=== PATIENT | male | born 1945 | race Caucasian/White ===

== ENCOUNTER → 2016-11-14 | Outpatient (CLI) | payer OTHER ==
[~2016-11-14] MED LIST: ALL300 PO; ASPI-435 PO; INDA1TAB3 PO; LEVO-459 PO; LEVO50TA PO; LPT40 PO; METF1TAB85 PO; MIRA1TAB3 PO
[2016-11-14 12:41] LABS: ESTIMATED AVERAGE GLUCOSE 169 mg/dl; HA1C FLAG Normal (Normal)
== END | disposition home or self-care (01) ==
LOC: C.LABPVFM 08:03
PROVIDERS: ATTEND Physician Assistant
DX: E11.9 Type 2 diabetes mellitus without complications (principal); E78.00 Pure hypercholesterolemia, unspecified; I10 Essential (primary) hypertension; E03.9 Hypothyroidism, unspecified; R35.0 Frequency of micturition; R39.15 Urgency of urination

== ENCOUNTER → 2016-11-14 | Outpatient (CLI) | payer OTHER ==
[2016-11-14 12:23] LABS: BASO % 0.7 %; BASO ABS # 0.05 K/uL (0-0.2); COMPLETE YES; HEMATOCRIT 44.7 % (42-52); IG% 0.3 %; LYMPH % 32.3 %; LYMPH ABS # 2.45 K/uL (1.2-3.4); MEAN CELL VOLUME 93.3 fL (80-100); MEAN CORPUSCULAR HEMOGLOBIN 31.9 pg (25-34); MEAN CORPUSCULAR HGB CONC 34.2 g/dl (32-36); MEAN PLATELET VOLUME 9.6 fL (7.4-10.4); MONO % 6.6 %; NEUT % 55.1 %; PLATELET COUNT 289 K/uL (130-400); RED BLOOD COUNT 4.79 M/uL (4.7-6.1); WHITE BLOOD COUNT 7.58 K/uL (4.8-10.8)
[2016-11-14 12:25] LABS: URINE APPEARANCE CLEAR (CLEAR); URINE BILIRUBIN NEG (NEG); URINE COLOR YELLOW; URINE NITRITE NEG (NEG); URINE SPECIFIC GRAVITY 1.023 (1.000-1.030); UROBILINOGEN NEG (NEG)
[2016-11-14 12:29] LABS: MANUAL MICROSCOPIC REQUIRED? NO; REVIEW REQ? NO
[2016-11-14 12:41] LABS: ALT/SGPT 29 U/L (12-78); AST/SGOT 21 U/L (15-37); BLOOD UREA NITROGEN 17 mg/dl (7-18); BUN/CREATININE RATIO 17.7 (10-20); CALCIUM 9.3 mg/dl (8.5-10.1); CARBON DIOXIDE 31 mmol/L (21-32); CHLORIDE 105 mmol/L (98-107); CHOLESTEROL 140 mg/dl (0-200); CREATININE 0.97 mg/dl (0.60-1.40); GLUCOSE 141 mg/dl (70-99); POTASSIUM 3.8 mmol/L (3.5-5.1); SODIUM 140 mmol/L (136-145)
[2016-11-14 12:51] LABS: CHOLESTEROL/HDL RATIO 3.4; HDL CHOLESTEROL 41 mg/dl; LDL CHOLESTEROL CALCULATED 76 mg/dl; TRIGLYCERIDES 117 mg/dl (0-150); VERY LOW DENSITY LIPOPROT CALC 23 mg/dl
== END | disposition home or self-care (01) ==
LOC: C.LABPVFM 07:59
PROVIDERS: ATTEND Internal Medicine
DX: I10 Essential (primary) hypertension (principal); E78.00 Pure hypercholesterolemia, unspecified; E11.9 Type 2 diabetes mellitus without complications

== ENCOUNTER → 2017-03-01 | Outpatient (CLI) | payer OTHER ==
[2017-03-01 17:09] LABS: ESTIMATED AVERAGE GLUCOSE 174 mg/dl; HA1C FLAG Normal (Normal)
== END | disposition home or self-care (01) ==
LOC: C.LAB1850 13:49
PROVIDERS: ATTEND Internal Medicine
DX: E11.9 Type 2 diabetes mellitus without complications (principal)

== ENCOUNTER → 2017-06-02 | Outpatient (CLI) | payer OTHER ==
[2017-06-02 12:38] LABS: BASO % 1.2 %; BASO ABS # 0.09 K/uL (0-0.2); EOS % 6.2 %; EOS ABS # 0.46 K/uL (0-0.5); HEMATOCRIT 45.4 % (42-52); HEMOGLOBIN 15.5 g/dL (14.0-18.0); IG# 0.01 K/uL (0.00-0.02); LYMPH % 30.7 %; LYMPH ABS # 2.29 K/uL (1.2-3.4); MEAN CELL VOLUME 95.2 fL (80-100); MEAN CORPUSCULAR HEMOGLOBIN 32.5 pg (25-34); MEAN CORPUSCULAR HGB CONC 34.1 g/dl (32-36); MEAN PLATELET VOLUME 9.8 fL (7.4-10.4); MONO % 6.4 %; MONO ABS # 0.48 K/uL (0.11-0.59); NEUT % 55.4 %; NEUT ABS # 4.12 K/uL (1.4-6.5); PLATELET COUNT 254 K/uL (130-400); RED CELL DISTRIBUTION WIDTH CV 13.8 % (11.5-14.5); RED CELL DISTRIBUTION WIDTH SD 47.7 fL (36.4-46.3); WHITE BLOOD COUNT 7.45 K/uL (4.8-10.8)
[2017-06-02 13:23] LABS: HEMOGLOBIN A1C 8.1 % (4.5-5.6)
[2017-06-02 13:41] LABS: ALT/SGPT 29 U/L (12-78); AST/SGOT 18 U/L (15-37); BLOOD UREA NITROGEN 21 mg/dl (7-18); CALCIUM 9.1 mg/dl (8.5-10.1); CARBON DIOXIDE 28 mmol/L (21-32); GLUCOSE 193 mg/dl (70-99); SODIUM 138 mmol/L (136-145)
[2017-06-02 13:52] LABS: CHOLESTEROL 153 mg/dl (0-200); LDL CHOLESTEROL CALCULATED 73 mg/dl
== END | disposition home or self-care (01) ==
LOC: C.LABPVFM 07:27
PROVIDERS: ATTEND Internal Medicine
DX: E11.9 Type 2 diabetes mellitus without complications (principal)

== ENCOUNTER 2019-12-20 18:53 | Observation (INO) ==
[2019-12-20] MEDS ORDERED: NITROGLYCERIN SL 0.4 MG/TAB TAB SL PRN (19:03)
[2019-12-20] MEDS ORDERED: ASPIRIN CHEW 324 MG PO STA (19:03)
--- NOTE | 2019-12-20 19:14 | Emergency Department Note ---
History of Present Illness General Chief Complaint: Chest Pain Stated Complaint: CHEST PAIN, NAUSEA Time Seen by Provider: 12/20/19 19:03 History of Present Illness Provider Complaint: chest pain Onset (ago): day(s) 1 Duration: constant and progressively worsening Onset: during rest Pain Location: substernal Pain Radiation: none Severity: moderate Maximum Pain Intensity: 5 Current Pain Intensity: 5 Quality: + dull and + other (pressure) Relieved By: + nothing Exacerbated By: + nothing Context: no recent surgery, no recent immobilization, no trauma/injury and no history of DVT/PE Associated symptoms: no nausea, no dyspnea, no syncope, no palpitations and no fever Home Medications Home Medications Medication Instructions Recorded Confirmed Type atorvastatin 40 mg tablet 40 mg PO QPM #90 tab 01/26/19 04/11/19 Rx levothyroxine 88 mcg tablet 88 mcg PO DAILY #90 tab 01/26/19 04/11/19 Rx glipizide 5 mg tablet, extended 5 mg PO DAILY #90 tab 02/02/19 04/11/19 Rx release 24 hr allopurinol 300 mg tablet 300 mg PO DAILY #90 tab 03/07/19 04/11/19 Rx metformin 500 mg tablet,extended 1,000 mg PO BID #360 tab 03/15/19 04/11/19 Rx release 24hr indapamide 1.25 mg tablet 1.25 mg PO QAM #90 tab 03/24/19 04/11/19 Rx tolterodine 4 mg capsule,extended 4 mg PO DAILY #90 cap 04/19/19 Rx release 24 hr mirabegron 50 mg tablet,extended 50 mg PO DAILY #90 tab 08/07/19 Rx release 24 hr Allergies Allergy/AdvReac Type Severity Reaction Status Date / Time bacitracin Allergy Unknown unknown Unverified 04/11/19 13:28 neomycin Allergy Unknown unknown Unverified 04/11/19 13:28 polymyxin B Allergy Unknown unknown Unverified 04/11/19 13:28 Past Med/Surg History Medical History Adenomatous polyp of colon Diabetes mellitus Enlarged prostate without lower urinary tract symptoms (luts) Gout Hypercholesterolemia Hypertension Hypothyroidism Social History Smoking Status: Never smoker Feels Safe at Home: Yes Review of Systems A total of 10 systems reviewed and were otherwise negative Physical Exam Vital Signs Vital Signs - 24 hr 12/20/19 18:55 12/20/19 19:05 12/20/19 19:21 Temperature 36.8 C Temperature Source Oral Pulse Rate 115 H 109 H 107 H Pulse Rate from SpO2 Sensor 106 H Respiratory Rate 16 26 H 20 Respiratory Effort / Characteristics Non-Labored Spontaneous Respiratory Depth Normal Blood Pressure 161/90 H 175/109 H 140/99 Blood Pressure Mean 113 138 105 Blood Pressure Position Sitting Pulse Oximetry 97 98 98 Oxygen Delivery Method Room Air Sepsis Recent Fever Within 48 Hours No Sepsis New/Unexplained Change in Mental Status N/A Sepsis Action Taken by Nursing No Action Required 12/20/19 19:22 Temperature Temperature Source Pulse Rate 117 H Pulse Rate from SpO2 Sensor Respiratory Rate 24 Respiratory Effort / Characteristics Respiratory Depth Blood Pressure Blood Pressure Mean Blood Pressure Position Pulse Oximetry 98 Oxygen Delivery Method Room Air Sepsis Recent Fever Within 48 Hours Sepsis New/Unexplained Change in Mental Status Sepsis Action Taken by Nursing Physical Exam GENERAL: He is oriented to person, place, and time. He appears well-developed and well-nourished. He does not appear distressed. HENT: Exam performed. - Head: Normocephalic and atraumatic. - Right Ear: External ear normal. No mastoid tenderness. - Left Ear: External ear normal. No mastoid tenderness. - Mouth/Throat: The oropharynx is clear and moist. No trismus in the jaw. No dental abscesses or uvula swelling. No oropharyngeal exudate or tonsillar abscesses. EYES: Conjunctivae and EOM are normal. Pupils are equal, round, and reactive to light. Right eye exhibits no discharge. Left eye exhibits no discharge. No scleral icterus. NECK: Normal range of motion. Neck supple. No JVD present. No spinous process tenderness present. No carotid bruit present. No rigidity. No tracheal deviation and normal range of motion present. No Brudzinski's sign and no Kernig's sign noted. CV: Tachycardic rate, regular rhythm, normal heart sounds and intact distal pulses. There is no peripheral edema. Palpable radial pulses bue. PULM/CHEST: Effort normal and breath sounds normal. No respiratory distress. No stridor. He has no wheezes. He has no rales. - Chest Wall: He exhibits no tenderness. ABD: The abdomen is soft. Bowel sounds are normal. He has no distension. No mass is present. There is no tenderness. There is no rebound, no guarding, no Thoams's sign and no tenderness at McBurney's point. Rovsig negative. MUSC/SKEL: Normal range of motion. There is no peripheral edema, tenderness or deformity. LYMPH: No cervical adenopathy. NEURO: He is alert and oriented to person, place, and time. He has normal strength. No cranial nerve deficit or sensory deficit. Coordination and gait normal. GCS eye subscore is 4. GCS verbal subscore is 5. GCS motor subscore is 6. Cerebellar tests wnl. SKIN: Skin is warm and dry. He is not diaphoretic. PSYCH: He has a normal mood and affect. Behavior is normal. Judgment and thought content normal. Course Course 0: The patient was evaluated in room A12. A complete history and physical exam was performed. Heart alert called. asa 324 mg and SL nitro ordered. patient placed on cardiac specialist pads applied. Cardiac monitoring: An order was placed for continuous cardiac monitoring. The monitor shows a rate of 110 with sinus tachycardia rhythm. ST elevation on the rhythm. 1915: Vital signs stable. Status post 1 sublingual nitro chest pain improved to 3/10. 1921: Vital signs stable patient chest pain free at this time. 1940: Dr. Krueger at bedside will take the patient up to the [facility] for STEMI. Administered Medications Nitroglycerin (Nitroglycerin Sl 0.4 Mg/Tab Tab) 0.4 mg SL Q5M PRN PRN Reason: Chest Pain Last Admin: 12/20/19 19:14 Dose: 0.4 mg Documented by: [id number] Discontinued Medications Aspirin (Aspirin Chew 324 Mg) 324 mg PO NOW STA Stop: 12/20/19 19:04 Last Admin: 12/20/19 19:14 Dose: 324 mg Documented by: [id number] Heparin Sodium (Porcine) (Heparin Sod (Porcine) 1000 Unit/Ml 10 Ml Vial) Confirm Administered Dose 10,000 units .ROUTE .STK-MED ONE Stop: 12/20/19 19:26 Last Admin: 12/20/19 19:38 Dose: 10,000 units Documented by: [id number] Cosigned by: [id number] Ticagrelor (Ticagrelor 90 Mg Tab) Confirm Administered Dose 180 mg PO .STK-MED ONE Stop: 12/20/19 19:26 Last Admin: 12/20/19 19:38 Dose: 180 mg Documented by: [id number] Medical Decision Making Laboratory Data Result diagrams: 12/20/19 19:05 12/20/19 19:05 Labs: Lab Results 12/20/19 12/20/19 12/20/19 Range/Units 19:05 19:05 19:05 WBC 11.41 H (4.8-10.8) K/uL RBC 5.25 (4.7-6.1) M/uL Hgb 17.1 (14.0-18.0) g/dL Hct 49.0 (42-52) % MCV 93.3 (80-100) fL MCH 32.6 (25-34) pg MCHC 34.9 (32-36) g/dL RDW Std Deviation 47.0 H (36.4-46.3) fL RDW Coeff of Mega 14.0 (11.5-14.5) % Plt Count 310 (130-400) K/uL MPV 9.3 (7.4-10.4) fL Immature Gran % (Auto) 0.4 % Neut % (Auto) 77.6 % Lymph % (Auto) 15.2 % [place] % (Auto) 6.1 % Eos % (Auto) 0.4 % Baso % (Auto) 0.3 % Neut # (Auto) 8.86 H (1.4-6.5) K/uL Lymph # (Auto) 1.74 (1.2-3.4) K/uL [place] # (Auto) 0.70 H (0.11-0.59) K/uL Eos # (Auto) 0.04 (0-0.5) K/uL Baso # (Auto) 0.03 (0-0.2) K/uL Immature Gran # (Auto) 0.04 H (0.00-0.02) K/uL PT 11.1 (9.0-12.0) Seconds INR 1.1 (0.9-1.1) APTT 25.5 (21.0-31.0) Seconds PTT Ratio 0.9 Sodium 135 L (136-145) mmol/L Potassium 3.2 L (3.5-5.1) mmol/L Chloride 100 (98-107) mmol/L Carbon Dioxide 27 (21-32) mmol/L Anion Gap 8.0 (3-11) BUN 14 (7-18) mg/dl Creatinine 1.11 (0.6-1.4) mg/dl Est Cr Clr Drug Dosing 68.7 ml/min Est GFR ( Amer) 75.4 Est GFR (Non-Af Amer) 65.1 BUN/Creatinine Ratio 12.9 (10-20) Glucose 172 H (70-99) mg/dl Calcium 9.4 (8.5-10.1) mg/dl Magnesium 1.4 L (1.8-2.4) mg/dl AST 97 H (15-37) U/L ALT 36 (12-78) U/L Albumin 3.7 (3.4-5.0) gm/dl Lipase 95 (73-393) U/L Imaging Data Chest x-ray: Radiologist's impression: XR chest 1V portable HISTORY: 74 years-old Male Chest pain acute atypical chest pain COMPARISON: CTA of the chest 02/08/2014 TECHNIQUE: Portable AP view of the chest FINDINGS: Cardiac silhouette is enlarged, unchanged. Large hiatal hernia. Linear subsegmental left basilar atelectasis/scarring. No pneumothorax, pleural effusion or overt pulmonary edema. Bones of the chest appear grossly intact. IMPRESSION: 1. Cardiomegaly without acute process. 2. Large hiatal hernia. ACT 112: Negative or not required by law. The above report was generated using voice recognition software. It may contain grammatical, syntax or spelling errors. Electronically signed by: Jacky Sunshine M.D. 12/20/2019 7:31 PM Dictated: 12/20/191929 Transcribed: 12/20/191929 ECG Data Indication: chest pain Rate (beats per minute): 103 Rhythm: normal sinus Findings: + ST depression (V3V4) and + ST elevation (V1V2) Additional Comments: MA QRS QTC interval within normal limits MDM Narrative 1899: The patient was evaluated in room A12. A complete history and physical exam was performed. Heart alert called. asa 324 mg and SL nitro ordered. patient placed on cardiac specialist pads applied. Cardiac monitoring: An order was placed for continuous cardiac monitoring. The monitor shows a rate of 110 with sinus tachycardia rhythm. ST elevation on the rhythm. 1915: Vital signs stable. Status post 1 sublingual nitro chest pain improved to 3/10. 1921: Vital signs stable patient chest pain free at this time. 1940: Dr. Krueger at bedside will take the patient up to [facility] for STEMI. Impression & Plan ST elevation myocardial infarction (STEMI) Critical Care Time Critical Care Time: Yes Total Critical Care Time: 41 I have personally spent greater than 41 minutes of critical care time in the direct management of this patient. This includes bedside care, interpretation of diagnostic studies, and testing, discussion with consultants, patient, and family members, and other required patient management activities. This 41 minutes is in excess of all separately billable procedures. Discharge Plan Visit Data Chief Complaint: Chest Pain Stated Complaint: CHEST PAIN, NAUSEA ED Provider: Geoffrey Rocha Discharge Problem: ST elevation myocardial infarction (STEMI) Patient Disposition: Admitted As Inpatient Forms Stand Alone Forms: [facility] Prescriptions Prescriptions: No Action atorvastatin 40 mg tablet 40 mg PO QPM Qty: 90 RF: 3 levothyroxine [Levoxyl] 88 mcg tablet 88 mcg PO DAILY Qty: 90 RF: 3 glipizide 5 mg tablet extended release 24hr 5 mg PO DAILY Qty: 90 RF: 3 allopurinol 300 mg tablet 300 mg PO DAILY Qty: 90 RF: 3 metformin 500 mg tablet extended release 24hr 1,000 mg PO BID Qty: 360 RF: 3 indapamide 1.25 mg tablet 1.25 mg PO QAM Qty: 90 RF: 3 tolterodine 4 mg capsule,extended release 24hr 4 mg PO DAILY Qty: 90 RF: 4 Myrbetriq 50 mg tablet extended release 24 hr 50 mg PO DAILY Qty: 90 RF: 3 Referrals Referrals: Oscar Nichole MD [Primary Care Provider] -
[2019-12-20 19:16] LABS: Basophils # (auto) 0.03 K/uL (0-0.2); Basophils % (auto) 0.3 %; Eosinophils # (auto) 0.04 K/uL (0-0.5); Eosinophils % (auto) 0.4 %; Hemoglobin 17.1 g/dL (14.0-18.0); Immature Granulocytes # (auto) 0.04 K/uL (0.00-0.02); Immature Granulocytes % (auto) 0.4 %; Lymphocytes # (auto) 1.74 K/uL (1.2-3.4); Lymphocytes % (auto) 15.2 %; Mean Corpuscular Hemoglobin 32.6 pg (25-34); Mean Corpuscular Hgb Conc 34.9 g/dL (32-36); Mean Corpuscular Volume 93.3 fL (80-100); Mean Platelet Volume 9.3 fL (7.4-10.4); Monocytes % (auto) 6.1 %; Neutrophils # (auto) 8.86 K/uL (1.4-6.5); Neutrophils % (auto) 77.6 %; Platelet Count 310 K/uL (130-400); Red Blood Count 5.25 M/uL (4.7-6.1); White Blood Count 11.41 K/uL (4.8-10.8)
[2019-12-20] MEDS ORDERED: HEPARIN (PORCINE) 1000 UNIT/ML 10 ML (CATH LAB USE ONLY) ONE (19:22)
[2019-12-20] MEDS ORDERED: MIDAZOLAM HCL 1 MG/ML 2ML VIAL ONE (19:22)
[2019-12-20] MEDS ORDERED: NiCARDipine HCL INJ 2.5 MG/ML 10 ML AMP ONE (19:22)
[2019-12-20] MEDS ORDERED: fentaNYL citrate 100 MCG/2 ML VIAL ONE (19:22)
[2019-12-20] MEDS ORDERED: NITROGLYCERIN/D5W 100MCG/ML 20ML SYR ONE (19:23)
[2019-12-20] MEDS ORDERED: HEPARIN SOD (PORCINE) 1000 UNIT/ML 10 ML VIAL ONE (19:25)
[2019-12-20] MEDS ORDERED: TICAGRELOR 90 MG TAB PO ONE ×2 (19:25→19:45)
[2019-12-20 19:27] LABS: INR 1.1 (0.9-1.1); Partial Thromboplastin Ratio 0.9; Partial Thromboplastin Time 25.5 Seconds (21.0-31.0); Prothrombin Time 11.1 Seconds (9.0-12.0)
[2019-12-20 19:32] LABS: Albumin Level 3.7 gm/dl (3.4-5.0); BUN Creatinine Ratio 12.9 (10-20); Calcium 9.4 mg/dl (8.5-10.1); Creatinine Clr Calc Pharmacy 68.7 ml/min; Est GFR (African American) 75.4; Est GFR (Non-African American) 65.1; Magnesium 1.4 mg/dl (1.8-2.4); Potassium 3.2 mmol/L (3.5-5.1)
--- NOTE | 2019-12-20 19:33 | XRay Report ---
XR chest 1V portable HISTORY: 74 years-old Male Chest pain acute atypical chest pain COMPARISON: CTA of the chest 02/08/2014 TECHNIQUE: Portable AP view of the chest FINDINGS: Cardiac silhouette is enlarged, unchanged. Large hiatal hernia. Linear subsegmental left basilar atel ectasis/scarring. No pneumothorax, pleural effusion or overt pulmonary edema. Bones of the chest appe ar grossly intact. IMPRESSION: 1. Cardiomegaly without acute process. 2. Large hiatal hernia. ACT 112: Negative or not required by law. The above report was generated using voice recognition software. It may contain grammatical, syntax o r spelling errors. Electronically signed by: Jacky Sunshine M.D. 12/20/2019 7:31 PM
--- NOTE | 2019-12-20 19:44 | Pre Anesthesia Assessment ---
Date of Service December 20, 2019 Pre Sedation Assessment Vital Signs Temp Pulse Resp BP Pulse Ox 12/20/19 19:22 117 H 24 98 12/20/19 19:21 107 H 20 140/99 98 12/20/19 19:05 109 H 26 H 175/109 H 98 12/20/19 18:55 98.2 F 115 H 16 161/90 H 97 Cardiovascular RRR, no murmur, no edema Respiratory normal respiratory effort, lungs clear to auscultation Pre-Sedation Airway Assessment Smoking Status: Never smoker Hx Sleep Apnea: No Hx Difficult Intubation: No Short, Thick Neck: No Thyromental Distance: > or= 3.5 Finger Breadths Oral Cavity: + WNL Mallampati Class: III ASA: ASA3 Procedure Planning Contraindications for Sedation: none Current Medications Reviewed: Yes Notes The planned sedation has been discussed with the patient. Informed Consent was obtained. I have identified the patient, determined the appropriateness of sedation and have assessed the patient immediately prior to the procedure. All medicine(s) and interventions are by my order.
[2019-12-20] MEDS ORDERED: HEPARIN SOD (PORCINE) 1000 UNIT/ML 10 ML VIAL IV ONE (19:45)
[2019-12-20 19:47] LABS: Albumin Globulin Ratio 0.9 (0.9-2); Bilirubin,Total 0.6 mg/dl (0.2-1); Creatine Kinase MB 65.8 ng/ml (0.5-3.6); Globulin 4.1 gm/dl (2.5-4.0); Total Protein 7.8 gm/dl (6.4-8.2); Troponin I 12.4 ng/ml (0-0.045)
--- NOTE | 2019-12-20 19:48 | Cardiology Consultation ---
Date of Consultation December 20, 2019 Assessment & Plan (1) Acute UT: Presentation concerning for acute UT and recommend proceeding with emergent cardiac catheterization and likely primary PCI. No apparent contraindications to procedure. Discussed risks, benefits, alternatives of procedure with patient and they are willing to proceed. Given IV heparin and ticagrelor 180 mg in the ED. Further recommendations pending findings of coronary angiography. History of Present Illness History of Present Illness 74-year-old man here with acute chest pain and ECG concerning for acute UT. Patient seen emergently in the ED after heart alert activated on arrival. No prior cardiac history. Cardiac risk factors include [id number] type 2 diabetes, hypertension, dyslipidemia. Chest pain began the night prior to presentation and largely persisted since that time. Describes substernal chest pressure with associated nausea. Pain at its worst 8 out of 10. Denies similar symptoms in the past. Not terribly active at baseline but denies any exertional chest comfort the last several weeks when out walking his dog. Chest pain at time of arrival 09/09 to ED. Hemodynamically stable. EKG showed subtle anterior ST elevations. Chest pain largely resolved with 1 sublingual nitroglycerin Allergies Allergy/AdvReac Type Severity Reaction Status Date / Time bacitracin Allergy Unknown unknown Unverified 04/11/19 13:28 neomycin Allergy Unknown unknown Unverified 04/11/19 13:28 polymyxin B Allergy Unknown unknown Unverified 04/11/19 13:28 Home Medications Home Medications Medication Instructions Recorded Confirmed Type atorvastatin 40 mg tablet 40 mg PO QPM #90 tab 01/26/19 04/11/19 Rx levothyroxine 88 mcg tablet 88 mcg PO DAILY #90 tab 01/26/19 04/11/19 Rx glipizide 5 mg tablet, extended 5 mg PO DAILY #90 tab 02/02/19 04/11/19 Rx release 24 hr allopurinol 300 mg tablet 300 mg PO DAILY #90 tab 03/07/19 04/11/19 Rx metformin 500 mg tablet,extended 1,000 mg PO BID #360 tab 03/15/19 04/11/19 Rx release 24hr indapamide 1.25 mg tablet 1.25 mg PO QAM #90 tab 03/24/19 04/11/19 Rx tolterodine 4 mg capsule,extended 4 mg PO DAILY #90 cap 04/19/19 Rx release 24 hr mirabegron 50 mg tablet,extended 50 mg PO DAILY #90 tab 08/07/19 Rx release 24 hr Patient History Medical History Adenomatous polyp of colon Diabetes mellitus Enlarged prostate without lower urinary tract symptoms (luts) Gout Hypercholesterolemia Hypertension Hypothyroidism Social History Smoking Status: Never smoker Feels Safe at Home: Yes Review of Systems Review of Systems: All systems reviewed & are unremarkable except as noted in HPI & below Physical Exam Physical Exam: General: Comfortable, no acute distress HEENT: Sclerae anicteric, mucous membranes moist Lungs: Clear to auscultation bilaterally, no rhonchi or wheezes Cardiac: Regular rate and rhythm, no murmurs Abdomen: Soft, nontender, nondistended, positive bowel sounds. Extremities: Warm, well perfused, no edema. 2+ radial pulses Skin: No rashes or lesions. Neuro: Nonfocal Psych: Alert orient x3, normal affect and mood Results & Data ([facility]) Vital Signs (Past 12 Hours) Vital Signs Temp Pulse Resp BP Pulse Ox 12/20/19 19:22 117 H 24 98 12/20/19 19:21 107 H 20 140/99 98 12/20/19 19:05 109 H 26 H 175/109 H 98 12/20/19 18:55 98.2 F 115 H 16 161/90 H 97 PG Care Time/CCT Total # of Minutes Spent Total Time Spent with Patient: Total time spent is greater than 50% in coordination of care (as documented) at patient's floor/unit and/or counseling patient: Coding Level of Care Code 18872 Initial Inpt Care Lvl 3 Diagnoses Acute UT I21.9
--- NOTE | 2019-12-20 20:33 | Post Anesthesia Assessment ---
Date of Service December 20, 2019 Post Sedation Assessment Vital Signs Temp Pulse Resp BP Pulse Ox 12/20/19 19:22 117 H 24 98 12/20/19 19:21 107 H 20 140/99 98 12/20/19 19:05 109 H 26 H 175/109 H 98 12/20/19 18:55 98.2 F 115 H 16 161/90 H 97 Recovery Score Activity: Moves 4 extremities Respiration: Deep Breath/Cough Circulation: +/-20% PreAnes Value Consciousness: Fully Awake Oxygen Saturation: O2 needed for >90% Discharge Sedation Level of Care: Fast Track Phase II Post Sedation Plan On clinical assessment, the patient appears to have tolerated the sedation without complications. Patient is recovering as anticipated. Patient will continue to be monitored by nursing and may be discharged when sedation discharge criteria are met per below protocol. Upon Completions of procedure up to 15 minutes continue every 5 minute vital signs and the P.A.R. score; then discharge to a Phase I or Fast Track to Phase II per the following guidelines: * Discharge Patient to appropriate Phase II area if PAR is 8 or greater or return to pre- procedure baseline. The post - procedure orders will be as directed. * If PAR score is less than 8 or not return to pre-procedure baseline then patient will follow Phase I monitoring till PAR is reached for Phase II. The Phase I may be done in procedure room or may call to secure a Phase I area. * If naloxone or flumazenil are used for reversal, hold in Phase I for continued monitoring from when last reversal dose was given for a minimum of 60 minutes or longer pending the nurse and/or physician discretion of patient condition before discharge to Phase II. Please call the Sedation Physician to re-evaluate and complete post-note for discharge to Phase II area. Do NOT discharge from procedure sedation or Phase 1 until post- sedation eval uation note is complete by procedure /sedation MD Sedation Discharge Instructions to be given to the patient at discharge to home.
[2019-12-20] MEDS ORDERED: ACETAMINOPHEN 325 MG TAB PO PRN (20:39)
[2019-12-20] MEDS ORDERED: ONDANSETRON INJ 2 MG/ML 2 ML VIAL IV PRN (20:39)
[2019-12-20] MEDS ORDERED: SODIUM CHLORIDE 0.9% 1000ML 1,000 ML IV SCH (20:45)
--- NOTE | 2019-12-20 20:52 | Cardiac Catheterization ---
[facility] Data: Medical Detail Representative Cardiac Status Clinical evaluation leading to the procedure CAD Presenation: STEMI Anginal Classification: CCS IV Heart Failure: No Cardiogenic Shock within 24 Hours: No Cardiac Arrest within 24 Hours: No Imaging Studies Past 6 Months: No Stress Studies Past 6 Months: No Diagnostic Physicians Name: Mani Krueger MD Status: Elective Closure Device Percutaneous Entry Location: Radial Closure Device: Radial Band Recommendations: PCI without planned CABG PCI Indication: Immediate PCI for STEMI First Noted: First EKG Lesion Segment Name: Ostial second diagonal Culprit Artery: Yes Stenosis Prior to Rx (%): 100 Chronic Total Occlusion: No IVUS: No FFR: No Pre-Procedure GUNNER Flow: 0 Previously Treated Lesion: No Lesion Complexity: Non-High/Non-C Lesion Length (mm): 12 Thrombus Present: Yes Bifurcation Lesion: Yes Guidewire Across Lesion: Stenosis Post-Procedure (%): 0 Post-Procedure GUNNER Flow: 3 Devices(s) Deployed: Yes Yes Intraprocedure Events Significant Disection: No Perforation: No Cardiac Cath Procedure Full Procedure Date December 20, 2019 Pre-Procedure Diagnosis Pre-Procedure Diagnosis: STEMI AUC Score AUC Score: 9 Post-Procedure Diagnosis Post-Procedure Diagnosis: Severe CAD, Successful PCI, Normal LV Systolic Function and Normal Intracardiac Pressures Procedure(s) Performed Procedure(s) Performed: Coronary Angiography, Left Heart Cath, LV Angiography and Drug Eluting Stent Cafeter[employer] Cashier Mani Krueger MD Stained Glass Glazier Helper(s) Vasyl Estimated Blood Loss Estimated Blood Loss: 15 Medication(s) Medication(s): Fentanyl, Heparin, Lidocaine 1%, Nicardipine, Nitroglycerin and Versed Medication(s): Ticagrelor Summary of Findings Indication: Heart alert Persistent chest pain for more than 12 hours with subtle anterior ST elevations, initial troponin of 12. Access: 6 Fr slender right radial artery Catheters: EBU 3.5 guide, diagnostic JR4, pigtail Findings: LM -large caliber, ectatic at bifurcation LAD -medium caliber, 20 to 30% proximal, distal luminal irregularities prior to wrapping around apex. Medium caliber second diagonal 100% acute occlusion at ostium. Circumflex -large caliber, dominant, luminal irregularities. 30% ostial stenosis and small first OM large OM 2 without significant disease. RCA -nondominant, medium caliber, no significant disease LVEDP -6 LVEF 60% -- PCI -- Antithrombotic therapy: Heparin, ticagrelor Procedure: Left main cannulated with EBU 3.5 guide Stylist Assistant 50 wire passed across ostial diagonal lesion into distal vessel Ostial 2nd diagonal lesion predilated with 2.5 compliant balloon Dilated lesion stented with 2.25 x 15 mm Brad FIGUEROA Stent post-dilated with stent balloon IC vasodilators administered for spasm Post procedure GUNNER 3 flow, stent well expanded with minimal residual stenosis and no apparent cardiac complications. Arterial Closure: TR band Summary: 1. Acute 100% occlusion of medium caliber second diagonal 2. Mild non-culprit vessel coronary artery disease -20 to 30% proximal LAD 3. Normal intracardiac filling pressure 4. Successful PCI of second diagonal ostium with single drug-eluting stent (2.25 x 15 mm Brad). Recommendations: Admit to PCU for continued monitoring Loaded with ticagrelor 180 mg in Medical Detail Representative Continue dual-antiplatelet therapy for at least 1 year. Trend troponins until peak, Check Echo Uptitrate beta-juliana/AMARA as BP allows High-dose statin Consult cardiac Rehab Hemodynamics Rest Ao:: 108/69/87 Final Ao: 112/68/88 LV: 119/6 Recommendations Recommendations: PCI without planned CABG Specimens Specimens: None Radiation Exposure (mGy) 2313 Contrast (mls) 110 Fluids (cc crystalloids) Fluids (cc crystalloids): 100 Drains Drains: None Anesthesia Moderate Procedural Complication(s) None Disposition PCU I attest to the content of the Intraoperative Record and any orders documented therein. Any exceptions are noted below. [facility] Card Cath Procedure Codes Cardiac Catheterization Procedure 1: Cardiovascular Cath Procedures: 33702 Coronaries and LHC (+/-LV) Moderate Sedation Procedure 1: Sedation/Anesthesia: 73984 Mod Sedation by the same physician;Init15 Min Child Age 5 & Up Procedure 2: Sedation/Anesthesia: 78497 Mod Sedation by the same physician; Ea [id number] Minutes Stenting Procedure 1: Cardiovascular Stent Procedures: 35629 Perc transluminal revascularization of acute sub/total occl, aMI PG Care Time/CCT Total # of Minutes Spent Total Time Spent with Patient: Total time spent is greater than 50% in coordination of care (as documented) at patient's floor/unit and/or counseling patient:
--- NOTE | 2019-12-20 20:54 | History & Physical Report ---
Date of Service December 20, 2019 Assessment & Plan (1) Acute DC: Govind Calzada is a 74yo M with a PMHx of DM, Gout, HLD, hypothyroid, and HTN who presented to the EDwith 1day of chest pain and for who a heart alert was called. He was found to have a 100% 2nd diagonal occlusion and had 1x FIGUEROA placed without complication. STEMI s/p PCI - Anterior ST elevations on admit. - Trop 12.4 on admit - s/p PCI with FIGUEROA to 2nd diagonal - Hemodynamically stable post procedure -Metoprolol 25 p.o. twice daily, aspirin 81 mg daily, atorvastatin 80 mg p.o. every morning, ticagrelor 90 mg p.o. 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 He was found to have a 100% 2nd diagonal occlusion and had 1x FIGUEROA placed without complication. Mr. Calzada's chest pain began one day ago in the evening was contant since. Central chest pressure, 5-8/10 in intensity. He has not experienced these symptoms before, he is not short of breath with exertion. had not experienced this symptoms before. His symptoms improved in the ED with nitro. Post cath he feels well. Chest pain completely resolved post-cath. Feels well, hungry. Denies any symptoms, feels at his normal baseline health. Reports he has a history of impaired glucose with A1c greater than 7, for which he takes metformin but does not need insulin. He is not sure what his last A1c was. MedHx: Reviewed Meds: Reviewed SurgicalHx:Reviewed Allergies: Reviewed Social: Denies tobacco, alcohol, recreational drug use. Independently ambulatory. Code Status: Full COde Allergies Allergy/AdvReac Type Severity Reaction Status Date / Time bacitracin Allergy Unknown unknown Unverified 04/11/19 13:28 neomycin Allergy Unknown unknown Unverified 04/11/19 13:28 polymyxin B Allergy Unknown unknown Unverified 04/11/19 13:28 Home Medications Home Medications Medication Instructions Recorded Confirmed Type levothyroxine 88 mcg tablet 88 mcg PO DAILY #90 tab 01/26/19 04/11/19 Rx glipizide 5 mg tablet, extended 5 mg PO DAILY #90 tab 02/02/19 04/11/19 Rx release 24 hr allopurinol 300 mg tablet 300 mg PO DAILY #90 tab 03/07/19 04/11/19 Rx metformin 500 mg tablet,extended 1,000 mg PO BID #360 tab 03/15/19 04/11/19 Rx release 24hr tolterodine 4 mg capsule,extended 4 mg PO DAILY #90 cap 04/19/19 Rx release 24 hr mirabegron 50 mg tablet,extended 50 mg PO DAILY #90 tab 08/07/19 Rx release 24 hr aspirin 81 mg PO QAM 30 Days #30 tab 12/21/19 Rx atorvastatin 80 mg PO QAM 30 Days #60 tab 12/21/19 Rx lisinopril [Zestril] 5 mg PO QAM 30 Days #30 tab 12/21/19 Rx metoprolol tartrate 25 mg PO BID 30 Days #60 tab 12/21/19 Rx nitroglycerin [Nitrostat] 0.4 mg SUBLINGUAL Q15M PRN 30 Days 12/21/19 Rx #60 tab ticagrelor [Brilinta] 90 mg PO BID 30 Days #60 tab 12/21/19 Rx Past Med/Surg History Medical History Adenomatous polyp of colon Diabetes mellitus Enlarged prostate without lower urinary tract symptoms (luts) Gout Hypercholesterolemia Hypertension Hypothyroidism Social History Smoking Status: Former smoker Hx Alcohol Use: No Hx Substance Use: No Preferred Language: Citizen Of [place] Communication Ability: Effective Sticker On Required: No Beliefs That Will Affect Care: None and Advent Advent Beliefs: Baptism. Current Living Situation: Spouse Feels Safe at Home: Yes Review of Systems Review of Systems: All systems reviewed & are unremarkable except as noted in HPI & below Physical Exam Physical Exam: General: A&Ox3. NAD. Cooperative. HEENT: Atraumatic, normocephalic. Pupils equal and reactive to light and accommodation. Extraocular movements intact. Visual acuity grossly intact. Pulm: CTAB A&P. -wheezes, -rales, -rhonchi. Symmetrical chest rise. No increase work of breathing. No respiratory distress. Cardiac: RRR, -mrg. Radial pulses intact and symmetrical. Abdominal: Nontender, nondistended, soft. BS present. Extremities: Warm, dry. TR band in place on right wrist. Radial pulse palpable bilaterally. PT pulse palpable bilaterally without asymmetry. Sensation in fingertips and toes intact bilaterally without asymmetry. Results & Data Results & Data ([facility]) Vital Signs (Past 12 Hours) Vital Signs Temp Pulse Resp BP Pulse Ox 12/20/19 19:22 117 H 24 98 12/20/19 19:21 107 H 20 140/99 98 12/20/19 19:05 109 H 26 H 175/109 H 98 12/20/19 18:55 36.8 C 115 H 16 161/90 H 97 Code Status & VTE Plan VTE Prophylaxis Plan VTE Prophylaxis will be ordered: Yes Supervising Physician Co-Signing Physician Notes Attending addendum: I have physically seen this patient, have supervised the medical residents activities, and agree with the H&P unless as otherwise noted. Assessment and Plan: Anterior STEMI/status post PCI with FIGUEROA to second diagonal- Main heart admission orders per Dr. Krueger Metoprolol tartrate 25 mg p.o. twice daily, aspirin 81 mg p.o. daily, atorvastatin 80 mg every morning and Brilinta 90 mg p.o. twice daily Post-cath protocol and TR band protocol Diabetes mellitus- Accu-Cheks before meals and at bedtime with NovoLog coverage per scale Hyperlipidemia- Atorvastatin 80 mg as noted above Hypothyroidism- continue Synthroid 80 mcg daily Remaining orders and notations as noted Resident Activity Tracking Resident Involvement: Resident Care Provided Care Provided: Adult [facility]
[2019-12-20] MEDS ORDERED: CARBOHYDRATES FOR HYPOGLYCEMIA PO PRN (21:14)
[2019-12-20] MEDS ORDERED: GLUCOSE 10 TABS/TUBE PO PRN (21:14)
[2019-12-20] MEDS ORDERED: DEXTROSE 50% 50 ML SYRINGE IV PRN (21:14)
[2019-12-20] MEDS ORDERED: GLUCAGON FOR INJ 1 MG VIAL SQ PRN (21:14)
[2019-12-20] MEDS ORDERED: GLUCOSE 40% GEL 15 GM TUBE PO PRN (21:14)
[2019-12-20] MEDS ORDERED: POTASSIUM CHLORIDE 20 MEQ TABCR PO STA (21:18)
[2019-12-20 21:51] LABS: Appearance Urine Clear (Clear); Bacteria Urine Automated Negative (Negative); Bilirubin Urine Negative (Negative); Blood Urine Trace (Negative); Color Urine Yellow; Glucose Urine UA Negative (Negative); Ketones Urine Negative (Negative); Leukocyte Esterase Urine Negative (Negative); Nitrite Urine Negative (Negative); Protein Urine Negative (Negative); RBC Urine Automated 0-4 /hpf (0-4); Specific Gravity Urine > 1.045 (1.000-1.030); Urobilinogen Urine Negative (Negative); WBC Urine Automated 0 /hpf (0-5); pH Urine 5.5 (4.5-7.5)
[2019-12-20] MEDS: MAGNESIUM OXIDE 400 MG TAB PO SCH (21:51)
[2019-12-20] MEDS: METOPROLOL TARTRATE 25 MG TAB PO SCH (21:51)
[2019-12-20] MEDS: POTASSIUM CHLORIDE 20 MEQ TABCR PO SCH ×3 (22:31→22:34)
[2019-12-21] MEDS: POTASSIUM CHLORIDE 20 MEQ TABCR PO SCH ×2 (03:07→05:58)
[2019-12-21 03:12] LABS: Basophils # (auto) 0.02 K/uL (0-0.2); Basophils % (auto) 0.2 %; Eosinophils # (auto) 0.04 K/uL (0-0.5); Eosinophils % (auto) 0.4 %; Hematocrit (blood only) 43.7 % (42-52); Hemoglobin 15.5 g/dL (14.0-18.0); Immature Granulocytes # (auto) 0.02 K/uL (0.00-0.02); Immature Granulocytes % (auto) 0.2 %; Lymphocytes # (auto) 1.45 K/uL (1.2-3.4); Lymphocytes % (auto) 12.8 %; Mean Corpuscular Hemoglobin 32.4 pg (25-34); Mean Corpuscular Hgb Conc 35.5 g/dL (32-36); Mean Corpuscular Volume 91.4 fL (80-100); Mean Platelet Volume 9.2 fL (7.4-10.4); Monocytes # (auto) 1.02 K/uL (0.11-0.59); Neutrophils % (auto) 77.4 %; Platelet Count 263 K/uL (130-400); RDW Coefficient of Variation 13.8 % (11.5-14.5); RDW Standard Deviation 46.1 fL (36.4-46.3); Red Blood Count 4.78 M/uL (4.7-6.1); White Blood Count 11.35 K/uL (4.8-10.8)
[2019-12-21 03:30] LABS: BUN Creatinine Ratio 13.7 (10-20); Calcium 9.1 mg/dl (8.5-10.1); Est GFR (African American) 100.5; Est GFR (Non-African American) 86.7; Potassium 3.3 mmol/L (3.5-5.1)
[2019-12-21 04:05] LABS: Troponin I 19.9 ng/ml (0-0.045)
[2019-12-21] MEDS ORDERED: LEVOTHYROXINE SODIUM 88 MCG TABLET PO SCH (06:30)
[2019-12-21 06:58] LABS: Estimated Average Glucose 163 mg/dl; Hemoglobin A1C 7.3 % (4.5-5.6)
[2019-12-21] MEDS ORDERED: TICAGRELOR 90 MG TAB PO SCH (07:00)
[2019-12-21] MEDS: INSULIN ASPART 100 UNITS/ML 3 ML PEN SC SCH ×2 (08:29→11:51)
[2019-12-21] MEDS: MAGNESIUM OXIDE 400 MG TAB PO SCH (08:30)
[2019-12-21] MEDS: METOPROLOL TARTRATE 25 MG TAB PO SCH (08:31)
[2019-12-21] MEDS ORDERED: TOLTERODINE TARTRATE LA 4 MG CAPCR PO SCH (09:00)
[2019-12-21] MEDS ORDERED: INSULIN GLARGINE SOLOSTAR 100 UNITS/ML 3 ML PEN SC SCH (09:00)
[2019-12-21] MEDS ORDERED: MIRABEGRON ER 25 MG TAB PO SCH (09:00)
[2019-12-21] MEDS ORDERED: ATORVASTATIN 40 MG TAB PO SCH (09:00)
[2019-12-21] MEDS ORDERED: ASPIRIN 81 MG ECTAB PO SCH (09:00)
[2019-12-21] MEDS ORDERED: lisinopriL 5 MG TAB PO SCH (09:00)
--- NOTE | 2019-12-21 10:34 | History & Physical Bridge Note ---
Date of Service December 21, 2019 History & Physical Bridge Note I have examined the patient, reviewed the History & Physical and in the interval since the performance of the History & Physical I have noted the following changes of clinical significance: By CMS guidelines, a determination that the admission or continued stay is not medically necessary has been made by a member of the UR committee and a physician for this hospital stay, therefore a Code 44 will be completed and the Inpatient admission will be changed to outpatient. Patient admitted for STEMI, successful stent to marginal branch. Feels great today, cleared by cardiology to be discharged. Initially with diagnosis of STEMI it was anticipated that the patient would be here for full admission but he will now go home after only one day.
--- NOTE | 2019-12-21 11:23 | Discharge Summary ---
Date of Service December 21, 2019 Admission HPI Per Admitting Provider Govind Archuleta is a 74yo M with a PMHx of DM, Gout, HLD, hypothyroid, and HTN who presented to the EDwith 1day of chest pain and for who a heart alert was called. He was found to have a 100% 2nd diagonal occlusion and had 1x FIGUEROA placed without complication. Mr. Calzada's chest pain began one day ago in the evening was contant since. Central chest pressure, 5-8/10 in intensity. He has not experienced these symptoms before, he is not short of breath with exertion. had not experienced this symptoms before. His symptoms improved in the ED with nitro. Post cath he feels well. Chest pain completely resolved post-cath. Feels well, hungry. Denies any symptoms, feels at his normal baseline health. Reports he has a history of impaired glucose with A1c greater than 7, for which he takes metformin but does not need insulin. He is not sure what his last A1c was. MedHx: Reviewed Meds: Reviewed SurgicalHx:Reviewed Allergies: Reviewed Social: Denies tobacco, alcohol, recreational drug use. Independently ambulator y. Code Status: Full COde Principal Diagnosis ST elevation HI Discharge Exam Constitutional WD/WN, vitals as above Eyes PERRL, conjunctivae normal, anicteric sclerae ENMT external ear and nose normal, oropharynx normal Neck trachea midline, no thyromegaly Respiratory normal respiratory effort, lungs clear to auscultation Cardiovascular RRR, no murmur, no edema Gastrointestinal (Abdomen) normal bowel sounds, soft, nontender, no hepatosplenomegaly Musculoskeletal no cyanosis or clubbing, extremities motor strength 5/5 Skin no rashes, warm and dry Neurologic patellar DTR's 2+ bilat, sensation intact and PERRL, EOMI, accommodation nl, no face palsy, no dysarthria Psychiatric A+Ox3, euthymic affect Lymphatic no cervical or axillary lymphadenopathy Discharge Data Allergies Allergy/AdvReac Type Severity Reaction Status Date / Time bacitracin Allergy Unknown unknown Unverified 04/11/19 13:28 neomycin Allergy Unknown unknown Unverified 04/11/19 13:28 polymyxin B Allergy Unknown unknown Unverified 04/11/19 13:28 Consultations 12/20/19 20:42 Consult Cardiac Rehabilitation Routine 12/21/19 00:28 Consult Cardiology Routine Procedures Performed Operation Date: 12/20/19 19:20 Actual Procedures p Aspiration/PCI w/FIGUEROA for Stemi - Iain Krueger MD s Cineradiography w/Routine Exam - Iain Krueger MD Ordered Studies 12/20/19 19:19 CL Cath Imgs for PACS use only Stat Hospital Course (1) Acute HI: Govind Calzada is a 74yo M with a PMHx of DM, Gout, HLD, hypothyroid, and HTN who presented to the EDwith 1day of chest pain and for who a heart alert was called. He was found to have a 100% 2nd diagonal occlusion and had 1x FIGUEROA placed without complication. STEMI s/p PCI - Anterior ST elevations on admit. - Trop 12.4 on admit - s/p PCI with FIGUEROA to 2nd diagonal, tolerated quite well - Hemodynamically stable post procedure, no chest pain or pressure since time of admission plan to take aspirin and Brilinta 90mg BID for one year Lipitor increased from 40mg to 80mg due to CAD and HI started on metoprolol 25mg BID, could titrate up as outpatient started on Lisinopril 5mg daily to preserve heart function Nitro SL PRN for chest pain echocardiogram with EF 60-65% with small area of hypokinesis in the anterolateral and mid anteroseptal quiros discharge to home, follow up with Dr. Nichole and cardiology DM Novolog SS while admitted - told to hold Metformin until 12/23 due to receiving contrast no hypoglycemic episodes while here HLD Atorvastatin as above Hypothyroid Continue IDEA MAN Synthroid 88 mcg daily DVT prophylaxis: SCDs Diet: Heart healthy Disposition: PCU CODE STATUS: Full code (2) ST elevation myocardial infarction (STEMI): (3) Diabetes mellitus: (4) Enlarged prostate without lower urinary tract symptoms (luts): (5) Gout: (6) Hypercholesterolemia: (7) Hypertension: (8) Hypothyroidism: Total Time Total Time Spent Total Time Spent (In Minutes): 32 minutes Total Time Includes: Examination of the Patient, Discharge Planning, Medication Reconciliation and Communication With Other Providers (Dr. Nichole, Dr. Krueger) Discharge Plan Discharge Items Patient Disposition: Home - Self-Care Reason For Visit: CHEST PAIN, NAUSEA Discharge Diagnosis: Acute Myocardial infarction placement of drug eluting stent Condition on Discharge: Good Goals: continue medical therapy for coronary disease and stent follow up closely with Dr. Nichole and Dr. Krueger Activity: Per Instructions section Lifting: No more than 5 pounds Bathing: No limitations Sexual Activity: Wait until after follow-up appointment Exercise/Sports: Wait until after follow-up appointment Driving/Machine Use: Resume 1 day after discharge Weightbearing: Full weightbearing Non-emergency contact: Primary Care Provider and Die Attacher Call non-emergency contact if: you have any medication questions and your symptoms worsen Follow-up/Referrals: Oscar Nichole MD [Primary Care Provider] - 12/28/19 11:30 am (one week, this apt is with Anika) Iain Krueger MD [Physician] - 01/10/20 3:00 pm (2-3 weeks, this apt with pauline alejo) Diet: Carb Consistent or DM2 and Heart Healthy Addtl Attending Provider Instructions: Medications: several medications are new, some have been stopped due to acute HI - ASPIRIN: 81mg daily, next dose due tomorrow - BRILINTA: 90mg twice a day, next dose due this evening, taken with aspirin every day this helps to keep stent open - LIPITOR: dose increased to 80mg daily now that you have had a heart attack - LISINOPRIL: 5mg daily, helps preserve heart function after heart attack - METOPROLOL: 25mg twice a day, next dose this evening, this helps lower blood pressure, control heart rate and reduce strain on heart - NITRO: take as needed under the tongue for chest pain/pressure, can repeat every 15 minutes x 3 doses, if you still have chest pain then go to emergency room METFORMIN: hold this until Wednesday since you received contrast, can resume Wednesday morning Acute STEMI, treated with emergent heart catheterization and drug eluting stent to marginal branch of LAD tolerated well, vitals stable, no chest pain this morning the medications described above are intended to prevent future heart attack, stabilize coronary plaques and stabilize stent, help preserve heart function please follow up in one week with Dr. Nichole, 2-[address] Krueger no strenuous activity until cleared by Dr. Krueger Pending Studies at Discharge: No Stand-Alone Forms: [employer], Smoking Cessation Medications and DC Order Prescriptions: New Brilinta 90 mg Tablet 90 mg PO BID 30 Days Qty: 60 RF: 3 atorvastatin 40 mg Tablet 80 mg PO QAM 30 Days Qty: 60 RF: 3 lisinopril [Zestril] 5 mg Tablet 5 mg PO QAM 30 Days Qty: 30 RF: 3 nitroglycerin [Nitrostat] 0.4 mg Tablet, Sublingual 0.4 mg sublingual Q15M PRN (Reason: chest pain) 30 Days Qty: 60 RF: 0 metoprolol tartrate 25 mg Tablet 25 mg PO BID 30 Days Qty: 60 RF: 3 aspirin 81 mg Tablet,Delayed Release (Dr/Ec) 81 mg PO QAM 30 Days Qty: 30 RF: 0 Continued levothyroxine [Levoxyl] 88 mcg tablet 88 mcg PO DAILY Qty: 90 RF: 3 glipizide 5 mg tablet extended release 24hr 5 mg PO DAILY Qty: 90 RF: 3 allopurinol 300 mg tablet 300 mg PO DAILY Qty: 90 RF: 3 metformin 500 mg tablet extended release 24hr 1,000 mg PO BID Qty: 360 RF: 3 tolterodine 4 mg capsule,extended release 24hr 4 mg PO DAILY Qty: 90 RF: 4 Myrbetriq 50 mg tablet extended release 24 hr 50 mg PO DAILY Qty: 90 RF: 3 Discontinued atorvastatin 40 mg tablet 40 mg PO QPM Qty: 90 RF: 3 indapamide 1.25 mg tablet 1.25 mg PO QAM Qty: 90 RF: 3 Discharge Orders: Discharge Order (Routine); Ordered 12/21/19 Ordered By: Tanner Tomas/Other Patient Handouts: Managing Type 2 Diabetes Admission Data Admit Date/Time: 12/20/19 20:43 Attending Provider: Tanner Ramirez Admit Provider: Adalberto Toney Primary Care Provider: Oscar Nichole Other Providers: Iain Krueger Other Interventions: Discharge Summary Assessment (RN) Last Done: 12/21/19 12:05 Coding Level of Care Code D/C Day Management >30 mins Diagnoses Acute HI I21.9 ST elevation myocardial infarction (STEMI) I21.3 Diabetes mellitus E11.9 Enlarged prostate without lower urinary tract symptoms (luts) N40.0 Gout M10.9 Hypercholesterolemia E78.00 Hypertension I10 Hypothyroidism E03.9
--- NOTE | 2019-12-21 13:07 | Cardiology Progress Note ---
Date of Service December 21, 2019 Assessment & Plan (1) Acute ME: 2. Preserved LV function 3. Mild mitral regurgitation 4. Syg-rubmgam-nilgnjueo diabetes Patient feeling well this morning. No recurrent chest pain. Troponin is peaked. LV function preserved on echo. Electrically stable on telemetry. No exit site complications. Post procedure labs are stable. From a cardiac standpoint okay with discharge today. Home on DAPT with aspirin, ticagrelor. Continue metoprolol, lisinopril on discharge. Continue high intensity statin. Follow-up with cardiology in 2 weeks. Will discuss cardiac rehab at that time. Admission and Anticipated Discharge Date Admission Date: December 20, 2019 Subjective Feeling well this morning. No recurrent chest pain. No other new concerns. Telemetry reviewedno events. Review of Systems Review of Systems: All systems reviewed & are unremarkable except as noted in HPI & below Physical Exam Physical Exam: General: Comfortable, no acute distress HEENT: Sclerae anicteric, mucous membranes moist Lungs: Clear to auscultation bilaterally, no rhonchi or wheezes Cardiac: Regular rate and rhythm, no murmurs Abdomen: Soft, nontender, nondistended, positive bowel sounds. Extremities: Warm, well perfused, no edema. 2+ radial pulses Skin: No rashes or lesions. Neuro: Nonfocal Psych: Alert orient x3, normal affect and mood Results & Data ([facility]) Vital Signs (Past 12 Hours) Vital Signs Temp Pulse Resp BP Pulse Ox 12/21/19 12:05 98.6 F 79 18 130/81 99 12/21/19 07:47 98.6 F 79 18 130/81 99 12/21/19 03:17 98.6 F 82 19 138/84 97 PG Care Time/CCT Total # of Minutes Spent Total Time Spent with Patient: Total time spent is greater than 50% in coordination of care (as documented) at patient's floor/unit and/or counseling patient: Coding Level of Care Code 99098 Subseq Hosp Care Lvl 3 Diagnoses Acute ME I21.9
--- NOTE | 2019-12-21 18:01 | XCELERA ---
[id number]
--- NOTE | 2019-12-21 21:15 | Billing Data ---
Date of Service December 21, 2019 Coding Level of Care Code 58305 Initial Inpt Care Lvl 3
--- NOTE | 2019-12-22 05:15 | Electrocardiogram Report ---
Test Reason : Blood Pressure : / mmHG Vent. Rate : 103 BPM Atrial Rate : 103 BPM P-R Int : 196 ms QRS Dur : 112 ms QT Int : 364 ms P-R-T Axes : 054 000 034 degrees QTc Int : 476 ms Sinus tachycardia Septal infarct , age undetermined Minor ST elevation lateral leads, consider injury pattern Abnormal ECG When compared with ECG of 10-FEB-2014 07:06, Septal infarct is now Present ST now slightly elevated in lateral leads Confirmed by Blayne Hargrove ([id number]) on 12/22/2019 5:15:06 AM Referred By: REFERRED SELF Confirmed By:Blayne Hargrove
--- NOTE | 2019-12-22 05:19 | Electrocardiogram Report ---
Test Reason : Blood Pressure : / mmHG Vent. Rate : 095 BPM Atrial Rate : 095 BPM P-R Int : 198 ms QRS Dur : 114 ms QT Int : 400 ms P-R-T Axes : 054 007 065 degrees QTc Int : 502 ms Normal sinus rhythm Septal infarct (cited on or before 20-DEC-2019) ST elevation in lateral leads, consider injury pattern Prolonged QT Abnormal ECG When compared with ECG of 20-DEC-2019 19:00, No significant change was found Confirmed by Blayne Hargrove ([id number]) on 12/22/2019 5:18:59 AM Referred By: REFERRED SELF Confirmed By:Blayne Hargrove
== END 2019-12-21 12:38 | disposition home or self-care (01) | DRG 247 ==
LOC: ED 18:53 → CC 19:53 → INTOOBSV 20:43 → SUATTDRO 20:43 → 2E 20:43

== ENCOUNTER 2022-02-01 18:43 | Inpatient (IN) ==
[2022-02-01] MEDS ORDERED: SODIUM CHLORIDE 0.9% 1000ML 1,000 ML IV STA (19:11)
[2022-02-01] MEDS ORDERED: SODIUM CHLORIDE 0.9% 1000ML 500 ML IV ONE (19:11)
[2022-02-01 19:29] LABS: Basophils # (auto) 0.04 K/uL (0-0.2); Basophils % (auto) 0.4 %; Hematocrit (blood only) 50.8 % (40.1-51.0); Hemoglobin 17.5 g/dl (14.0-18.0); Immature Granulocytes # (auto) 0.04 K/uL (0.00-0.02); Immature Granulocytes % (auto) 0.4 %; Lymphocytes # (auto) 1.11 K/uL (1.2-3.4); Lymphocytes % (auto) 10.9 %; Mean Corpuscular Hemoglobin 32.4 pg (25.0-34.0); Mean Corpuscular Hgb Conc 34.4 g/dL (32.0-36.0); Mean Corpuscular Volume 94.1 fL (80.0-100.0); Mean Platelet Volume 8.9 fL (9.4-12.4); Monocytes # (auto) 0.57 K/uL (0.24-0.82); Monocytes % (auto) 5.6 %; Neutrophils # (auto) 8.42 K/uL (1.4-6.5); Neutrophils % (auto) 82.7 %; Platelet Count 319 K/uL (130-400); RDW Coefficient of Variation 14.9 % (11.5-14.5); RDW Standard Deviation 51.5 fL (36.4-46.3); White Blood Count 10.18 K/ul (4.8-10.8)
[2022-02-01] MEDS ORDERED: HYDROmorphone INJ 0.5 MG/0.5 ML SYR IV PRN (19:37)
[2022-02-01] MEDS ORDERED: ONDANSETRON INJ 2 MG/ML 2 ML VIAL IV STA (19:37)
--- NOTE | 2022-02-01 19:37 | Emergency Department Note ---
Impression & Plan Vomiting, Hiatal hernia, Acute dehydration ED Provider Note INFORMANT: Patient ED PROVIDER(S): Miguel Mitchell MD CHIEF COMPLAINT: Dehydration PLAN: Disposition: Admitted Condition: Good Outpatient prescription management: none Referral: None MEDICAL DECISION MAKING: Because of concerns about dehydration. He has been having nausea and vomiting and noted some upper abdominal discomfort. A work-up was initiated. The patient was hydrated. He was treated with Dilaudid and Zofran. On reassessment he felt significantly better. The patient had an unremarkable CBC and chemistry panel. LFTs and urinalysis were unremarkable except for ketones. The patient had a CT scan performed and there was concerns that this vomiting and nausea issue is related to his hiatal hernia with some partial obstruction due to stricture. Clinically the patient looks very good at this time. He has a benign abdominal examination. He will need further management in the hospital. I did consult with Sarath Randle PA-C of general surgery. He noted the patient does need a work-up. No emergent transfer was recommended. Consultation was made with Dr. Brien Wagner of the [facility] service. Patient was evaluated in the ER for further management. Triage Nursing notes reviewed and agree them. Vital Signs: reviewed and remarkable for no significant abnormalities Differential diagnosis: Etiologies such as gastroenteritis, food borne illness, infections, appendicitis, diverticulitis, inflammatory bowel disease, GI bleed, biliary pathology, as well as others were entertained. Diagnostics interpreted by me: ECG: none Cardiac Monitoring: Cardiac monitoring ordered by me: The patient was placed on continuous cardiac monitoring and observed. It revealed a normal sinus rhythm at 94 beats per minute without ectopy or evidence of dysrhythmia. Imaging studies: CT scan as noted below HPI: The patient is a 76year old male who presents to the Emergency Room with complaints of dehydration. This started a week ago and is worsening over the last 3 days. The patient also notes the following associated symptoms, nausea, vomiting, abdominal bloating, lower abdominal pain. The patient has found no for relieving factors. Current pain is rated as 4/10. No prior history of the same. No abdominal surgeries. Patient is concerned they may be dehydrated today as he has lost 10 pounds. Pt denies LOC, headache, fevers, chills, diaphoresis, visual changes, neck pain, chest pain, breathing difficulties, back pain, melena, hematochezia, urinary symptoms, numbness, weakness, lymph adenopathy, rash, or other complaints. ROS: See above HPI for pertinent positives & negatives. A total of 10 systems reviewed and were otherwise negative. PAST MEDICAL HISTORY:See Below , CAD PAST SURGICAL HISTORY:See Below, FAMILY HISTORY:See Below SOCIAL HISTORY:See Below, retired HOME MEDICATIONS:See Below ALLERGIES:See Below VITALS:See Below PHYSICAL EXAMINATION: GENERAL: Awake, alert, well-appearing, in no distress HENT: Normocephalic, atraumatic. Oropharynx unremarkable. EYES: Normal conjunctiva. Sclera non-icteric. NECK: Inspection normal. Non-tender. Supple. No nuchal rigidity. FROM. No masses. RESPIRATORY: Clear to auscultation. No wheezes. No rales. Normal respiratory effort. CARDIAC: Normal rate. Normal rhythm. No murmurs. No rubs. Extremities warm and well perfused. Pulses equal. No JVD. GI: Soft, very-distended. Mild generalized tenderness to palpation. No rebound or guarding. No masses. RECTAL: Deferred. MUSCULOSKELETAL: Atraumatic. Chest examination reveals no tenderness. The back is symmetrical on inspection without obvious abnormality. There is no CVA tenderness to palpation. No joint edema. LOWER EXTREMITIES: Calves are equal size bilaterally and non-tender. No edema. No discoloration. NEURO: Normal sensorium. No sensory or motor deficits noted. SKIN: No rash or jaundice noted. Miguel Mitchell MD Past Med/Surg History Medical History Adenomatous polyp of colon CAD (coronary artery disease) STEMI 12/2019 s/p FIGUEROA to 2nd diagonal Enlarged prostate without lower urinary tract symptoms (luts) Gout Hypercholesterolemia Hypertension Hypothyroidism Prediabetes PT DENIES HAVING DM ST elevation myocardial infarction (STEMI) 12/20/2019 - [facility] - cardiac cath - STENT PLACED - follows Dr. Krueger Surgical History History of colonoscopy History of heart artery stent 12/20/2019 - [facility] - post ND - drug eluding - follows Dr. Krueger Hx of bilateral cataract extraction ~ 2021 [facility] Hx of cardiac catheterization 12/20/2019 - [facility] - post ND - unsure location - follows Dr. Krueger Family History Mother Colorectal cancer Denies family history of Ovarian cancer Prostate cancer Myocardial infarction Breast cancer Social History Smoking Status: Never smoker Second Hand Exposure: No; Hx Alcohol Use: No Hx Substance Use: No Preferred Language: Portuguese Communication Ability: Effective Used Car [employer] Required: No Beliefs That Will Affect Care: None marital status: / Current Living Situation: Alone current occupational status: retired current occupation: Retired Feels Safe at Home: Yes Childhood Exposure to Second-Hand Smoke: Yes Dental Care, Regularly: Yes Physical Activity Frequency: 3-4 Times per Week Seatbelt Use: always Sunscreen Use: Yes Assistive Devices: Glasses Allergies Allergies Allergy/AdvReac Type Severity Reaction Status Date / Time bacitracin Allergy Unknown unknown Verified 02/01/22 22:33 neomycin Allergy Unknown unknown Verified 02/01/22 22:33 polymyxin B Allergy Unknown unknown Verified 02/01/22 22:33 Home Meds Home Medications Medication Instructions Recorded Confirmed aspirin 81 mg tablet,delayed 81 mg PO QAM 01/26/20 02/01/22 release (Adult Low Dose Aspirin) allopurinol 300 mg tablet 300 mg PO QAM 10/07/21 02/01/22 empagliflozin 5 mg-metformin ER 2 tab PO BID 12/31/21 02/01/22 1,000 mg tablet,extended release 24 hr finasteride 5 mg tablet 5 mg PO QPM 12/31/21 02/01/22 levothyroxine 88 mcg tablet 88 mcg PO QAM 12/31/21 02/01/22 (Levoxyl) metoprolol succinate 50 mg 50 mg PO QAM 12/31/21 02/01/22 tablet,extended release 24 hr tamsulosin 0.4 mg capsule 0.4 mg PO QPM 12/31/21 02/01/22 Previous Rx's Medication Instructions Recorded lisinopril 5 mg tablet (Zestril) 5 mg PO QAM 90 days #90 tabs 02/24/21 atorvastatin 80 mg tablet 80 mg PO QPM #90 tabs 11/12/21 sildenafil (pulm.hypertension) 20 100 mg PO ONCE PRN sexual activity 11/25/21 mg tablet #30 tabs mirabegron 50 mg tablet,extended 50 mg PO QAM #14 tabs 01/19/22 release 24 hr (Myrbetriq) tolterodine 4 mg capsule,extended 4 mg PO QPM #14 caps 01/19/22 release 24 hr omeprazole 20 mg capsule,delayed 20 mg PO DAILY #30 caps 01/28/22 release Results & Data (ED) Vital Signs Vital Signs - 24 hr 02/01/22 18:55 02/01/22 19:55 02/01/22 20:00 Temperature 36.6 C Temperature Source Temporal Artery Scan Pulse Rate 72 Pulse Rate [Apical] 93 H 88 Respiratory Rate 18 18 18 Respiratory Effort / Characteristics Non-Labored Spontaneous Respiratory Depth Normal Blood Pressure 125/76 Blood Pressure [Left Arm] 114/77 110/81 Blood Pressure Mean 92 Blood Pressure Mean [Left Arm] 89 90 Blood Pressure Position Sitting Pulse Oximetry 99 98 97 Oxygen Delivery Method Room Air Room Air Room Air Sepsis Recent Fever Within 48 Hours No Sepsis New/Unexplained Change in Mental Status No Sepsis Action Taken by Nursing No Action Required 02/01/22 20:30 02/01/22 21:00 02/01/22 21:49 Temperature Temperature Source Pulse Rate Pulse Rate [Apical] 93 H 90 94 H Respiratory Rate 18 18 15 Respiratory Effort / Characteristics Respiratory Depth Blood Pressure Blood Pressure [Left Arm] 141/73 H 116/74 134/88 Blood Pressure Mean Blood Pressure Mean [Left Arm] 95 88 103 Blood Pressure Position Pulse Oximetry 99 97 97 Oxygen Delivery Method Room Air Room Air Room Air Sepsis Recent Fever Within 48 Hours Sepsis New/Unexplained Change in Mental Status Sepsis Action Taken by Nursing Laboratory Data Result diagrams: 02/01/22 19:10 02/01/22 19:10 Lab Results 02/01/22 02/01/22 02/01/22 Range/Units 19:10 19:10 19:30 WBC 10.18 (4.8-10.8) K/ul RBC 5.40 (4.63-6.08) M/uL Hgb 17.5 (14.0-18.0) g/dl Hct 50.8 (40.1-51.0) % MCV 94.1 (80.0-100.0) fL MCH 32.4 (25.0-34.0) pg MCHC 34.4 (32.0-36.0) g/dL RDW Std Deviation 51.5 H (36.4-46.3) fL RDW Coeff of Mega 14.9 H (11.5-14.5) % Plt Count 319 (130-400) K/uL MPV 8.9 L (9.4-12.4) fL Immature Gran % (Auto) 0.4 % Neut % (Auto) 82.7 % Lymph % (Auto) 10.9 % [place] % (Auto) 5.6 % Eos % (Auto) 0.0 % Baso % (Auto) 0.4 % Neut # (Auto) 8.42 H (1.4-6.5) K/uL Lymph # (Auto) 1.11 L (1.2-3.4) K/uL [place] # (Auto) 0.57 (0.24-0.82) K/uL Eos # (Auto) 0.00 (0-0.50) K/uL Baso # (Auto) 0.04 (0-0.2) K/uL Immature Gran # (Auto) 0.04 H (0.00-0.02) K/uL Sodium 141 (136-145) mmol/L Potassium 4.3 (3.5-5.1) mmol/L Chloride 100 (98-107) mmol/L Carbon Dioxide 25 (21-32) mmol/L Anion Gap 16 H (3-11) BUN 24 H (6-23) mg/dl Creatinine 1.05 (0.6-1.4) mg/dl Est Cr Clr Drug Dosing 59.9 ml/min Est GFR ( Amer) 79.5 ml/min Est GFR (Non-Af Amer) 68.6 ml/min BUN/Creatinine Ratio 22.9 H (10-20) Glucose 138 H (70-99(Fasting)) mg/dl Calcium 10.2 H (8.5-10.1) mg/dl Total Bilirubin 0.8 (0.2-1.0) mg/dl AST 16 (13-39) U/L ALT 14 (7-52) U/L Alkaline Phosphatase 76 (34-104) U/L Total Protein 7.5 (6.0-8.3) gm/dl Albumin 4.4 (3.4-5.0) gm/dl Globulin 3.1 (2.5-4.0) gm/dl Albumin/Globulin Ratio 1.4 (0.9-2) Urine Color Yellow Urine Appearance Clear (Clear) Urine pH 5.0 (4.5-7.5) Ur Specific [place] 1.033 H (1.000-1.030) Urine Protein 2+ H (Negative) Urine Glucose (UA) 3+ H (Negative) Urine Ketones 3+ H (Negative) Urine Blood 1+ H (Negative) Urine Nitrite Negative (Negative) Urine Bilirubin Negative (Negative) Urine Urobilinogen Negative (Negative) Ur Leukocyte Esterase Negative (Negative) Urine WBC (Auto) 1-5 (0-5) /hpf Urine RBC (Auto) 0-4 (0-4) /hpf U Hyaline Cast (Auto) 1-5 (0-5) /lpf U Epithel Cells (Auto) 5-10 H (0-5) /lpf Urine Bacteria (Auto) Negative (Negative) SARS-CoV-2, RNA, NAAT (NEGATIVE) 02/01/22 Range/Units 21:55 WBC (4.8-10.8) K/ul RBC (4.63-6.08) M/uL Hgb (14.0-18.0) g/dl Hct (40.1-51.0) % MCV (80.0-100.0) fL MCH (25.0-34.0) pg MCHC (32.0-36.0) g/dL RDW Std Deviation (36.4-46.3) fL RDW Coeff of Mega (11.5-14.5) % Plt Count (130-400) K/uL MPV (9.4-12.4) fL Immature Gran % (Auto) % Neut % (Auto) % Lymph % (Auto) % [place] % (Auto) % Eos % (Auto) % Baso % (Auto) % Neut # (Auto) (1.4-6.5) K/uL Lymph # (Auto) (1.2-3.4) K/uL [place] # (Auto) (0.24-0.82) K/uL Eos # (Auto) (0-0.50) K/uL Baso # (Auto) (0-0.2) K/uL Immature Gran # (Auto) (0.00-0.02) K/uL Sodium (136-145) mmol/L Potassium (3.5-5.1) mmol/L Chloride (98-107) mmol/L Carbon Dioxide (21-32) mmol/L Anion Gap (3-11) BUN (6-23) mg/dl Creatinine (0.6-1.4) mg/dl Est Cr Clr Drug Dosing ml/min Est GFR ( Amer) ml/min Est GFR (Non-Af Amer) ml/min BUN/Creatinine Ratio (10-20) Glucose (70-99(Fasting)) mg/dl Calcium (8.5-10.1) mg/dl Total Bilirubin (0.2-1.0) mg/dl AST (13-39) U/L ALT (7-52) U/L Alkaline Phosphatase (34-104) U/L Total Protein (6.0-8.3) gm/dl Albumin (3.4-5.0) gm/dl Globulin (2.5-4.0) gm/dl Albumin/Globulin Ratio (0.9-2) Urine Color Urine Appearance (Clear) Urine pH (4.5-7.5) Ur Specific [place] (1.000-1.030) Urine Protein (Negative) Urine Glucose (UA) (Negative) Urine Ketones (Negative) Urine Blood (Negative) Urine Nitrite (Negative) Urine Bilirubin (Negative) Urine Urobilinogen (Negative) Ur Leukocyte Esterase (Negative) Urine WBC (Auto) (0-5) /hpf Urine RBC (Auto) (0-4) /hpf U Hyaline Cast (Auto) (0-5) /lpf U Epithel Cells (Auto) (0-5) /lpf Urine Bacteria (Auto) (Negative) SARS-CoV-2, RNA, NAAT NEGATIVE (NEGATIVE) Administered Medications Hydromorphone HCl (Hydromorphone Inj 0.5 Mg/0.5 Ml Syr) 0.25 mg IV Q15M PRN PRN Reason: Pain Stop: 02/15/22 19:36 Last Admin: 02/01/22 19:53 Dose: 0.25 mg Documented By: RANDALL Sodium Chloride (Nss 1000ml) 1,000 mls @ 125 mls/hr IV .Q8H STA Stop: 02/02/22 03:10 Last Admin: 02/01/22 20:15 Dose: 125 mls/hr Documented By: RANDALL Discontinued Medications Sodium Chloride (Nss 1000ml) 500 mls @ 999 mls/hr IV .Q31M ONE Stop: 02/01/22 19:41 Last Infusion: 02/01/22 20:01 Dose: 0 mls/hr Documented By: Admin: 02/01/22 19:31 Dose: 999 mls/hr Documented By: RANDALL Ondansetron HCl (Ondansetron Inj 2 Mg/Ml 2 Ml Vial) 4 mg IV NOW STA Stop: 02/01/22 19:38 Last Admin: 02/01/22 19:53 Dose: 4 mg Documented By: RANDALL Imaging Data Radiologist's Impression: Abdomen/Pelvis CT 02/01/22 19:[address] WITHOUT CONTRAST CT DOSE: 435.14 mGy.cm HISTORY: Acute upper abdominal pain with nausea and vomiting upper abd pain, vomiting TECHNIQUE: Multiaxial CT images of the abdomen and pelvis were performed without contrast. A dose lowering technique was utilized adhering to the principles of ALARA. COMPARISON STUDY: CTA chest 12/22/2021 FINDINGS: Cardiomegaly with coronary artery calcifications. Mild subsegmental bibasilar atelectasis with left hemidiaphragmatic elevation. No pneumatosis or pneumoperitoneum. The unenhanced spleen is unremarkable. Mild to moderate pancreatic atrophy. Unremarkable adrenal glands. Cholelithiasis without CT evidence of acute cholecystitis. No biliary ductal dilation. Mild hepatic steatosis. Mild nonspecific bilateral perinephric stranding. 4 mm nonobstructing calculus of the superior pole left kidney. No ureteral calculi or hydronephrosis. Prostamegaly. Urinary bladder wall thickening with partial distention. Atherosclerosis of the aorta without aneurysm. No lymphadenopathy. Large hiatal hernia. There is inflammatory stranding in the hernia sac with trace free fluid. There is wall thickening present within the gastric body with a focal area of narrowing on image 46.. There is distention with air-fluid level involving the superiormost aspect of the stomach. No bowel obstruction or bowel wall thickening. Colonic diverticulosis without acute diverticulitis. Mild fecal retention. Normal appendix. Unremarkable soft tissues. Degenerative changes of the spine, pelvis and hips. IMPRESSION: 1. Large hiatal hernia is redemonstrated. Air-fluid distended proximal stomach with focal narrowing of the gastric body at the diaphragmatic hiatus. Gastric wall thickening is noted along with perigastric inflammatory stranding and trace free fluid. Findings are compatible with a nonspecific gastritis with possible gastric obstruction at the site of narrowing. 2. No bowel obstruction or bowel wall thickening. 3. Nonobstructing left nephrolithiasis. 4. Cholelithiasis. 5. Prostamegaly. ACT 112: Negative or not required by law. The above report was generated using voice recognition software. It may contain grammatical, syntax or spelling errors. Electronically signed by: Fabiano Sunshine M.D. 02/01/2022 8:02 PM Discharge Plan Visit Data Chief Complaint: Dehydration Stated Complaint: VOMITING POSSIBLE DEHYDRATION ED Provider: Miguel Mitchell Discharge Problem: Vomiting, Hiatal hernia, Acute dehydration Forms Stand Alone Forms: [facility] [place] RIVS Prescriptions Prescriptions: No Action Myrbetriq 50 mg tablet extended release 24 hr 50 mg PO QAM Qty: 14 0RF tolterodine 4 mg capsule,extended release 24hr 4 mg PO QPM Qty: 14 0RF aspirin [Adult Low Dose Aspirin] 81 mg tablet,delayed release (DR/EC) 81 mg PO QAM omeprazole 20 mg capsule,delayed release(DR/EC) 20 mg PO DAILY Qty: 30 2RF lisinopril [Zestril] 5 mg tablet 5 mg PO QAM 90 Days Qty: 90 3RF atorvastatin 80 mg tablet 80 mg PO QPM Qty: 90 3RF sildenafil (pulm.hypertension) 20 mg tablet 100 mg PO ONCE PRN (Reason: sexual activity) Qty: 30 11RF Rx Instructions: Take approx 1 hour prior to activity. Avoid large or heavy meals for maximum effectiveness. allopurinol 300 mg tablet 300 mg PO QAM metoprolol succinate 50 mg tablet extended release 24 hr 50 mg PO QAM levothyroxine [Levoxyl] 88 mcg tablet 88 mcg PO QAM tamsulosin 0.4 mg capsule 0.4 mg PO QPM finasteride 5 mg tablet 5 mg PO QPM empagliflozin-metformin 5-1,000 mg tablet, IR - ER, biphasic 24hr 2 tab PO BID Referrals Referrals: Perla Travis MD [Primary Care Provider] -
[2022-02-01 19:45] LABS: Appearance Urine Clear (Clear); Bacteria Urine Automated Negative (Negative); Bilirubin Urine Negative (Negative); Blood Urine 1+ (Negative); Color Urine Yellow; Glucose Urine UA 3+ (Negative); Ketones Urine 3+ (Negative); Leukocyte Esterase Urine Negative (Negative); Nitrite Urine Negative (Negative); Protein Urine 2+ (Negative); RBC Urine Automated 0-4 /hpf (0-4); Specific Gravity Urine 1.033 (1.000-1.030); Urobilinogen Urine Negative (Negative)
[2022-02-01 19:47] LABS: Albumin Globulin Ratio 1.4 (0.9-2); Albumin Level 4.4 gm/dl (3.4-5.0); BUN Creatinine Ratio 22.9 (10-20); Bilirubin,Total 0.8 mg/dl (0.2-1.0); Calcium 10.2 mg/dl (8.5-10.1); Creatinine Clr Calc Pharmacy 59.9 ml/min; Est GFR (African American) 79.5 ml/min; Est GFR (Non-African American) 68.6 ml/min; Globulin 3.1 gm/dl (2.5-4.0); Potassium 4.3 mmol/L (3.5-5.1); Total Protein 7.5 gm/dl (6.0-8.3)
--- NOTE | 2022-02-01 20:04 | CT Scan Report ---
ABDOMEN AND PELVIS CT WITHOUT CONTRAST CT DOSE: 435.14 mGy.cm HISTORY: Acute upper abdominal pain with nausea and vomiting upper abd pain, vomiting TECHNIQUE: Multiaxial CT images of the abdomen and pelvis were performed without contrast. A dose lo wering technique was utilized adhering to the principles of ALARA. COMPARISON STUDY: CTA chest 12/22/2021 FINDINGS: Cardiomegaly with coronary artery calcifications. Mild subsegmental bibasilar atelectasis w ith left hemidiaphragmatic elevation. No pneumatosis or pneumoperitoneum. The unenhanced spleen is un remarkable. Mild to moderate pancreatic atrophy. Unremarkable adrenal glands. Cholelithiasis without CT evidence of acute cholecystitis. No biliary ductal dilation. Mild hepatic steatosis. Mild nonspecific bilateral perinephric stranding. 4 mm nonobstructing calculus of the superior pole l eft kidney. No ureteral calculi or hydronephrosis. Prostamegaly. Urinary bladder wall thickening with partial distention. Atherosclerosis of the aorta without aneurysm. No lymphadenopathy. Large hiatal hernia. There is inflammatory stranding in the hernia sac with trace free fluid. There i s wall thickening present within the gastric body with a focal area of narrowing on image 46.. There is distention with air-fluid level involving the superiormost aspect of the stomach. No bowel obstruc tion or bowel wall thickening. Colonic diverticulosis without acute diverticulitis. Mild fecal retent ion. Normal appendix. Unremarkable soft tissues. Degenerative changes of the spine, pelvis and hips. IMPRESSION: 1. Large hiatal hernia is redemonstrated. Air-fluid distended proximal stomach with focal narrowing o f the gastric body at the diaphragmatic hiatus. Gastric wall thickening is noted along with perigastr ic inflammatory stranding and trace free fluid. Findings are compatible with a nonspecific gastritis with possible gastric obstruction at the site of narrowing. 2. No bowel obstruction or bowel wall thickening. 3. Nonobstructing left nephrolithiasis. 4. Cholelithiasis. 5. Prostamegaly. ACT 112: Negative or not required by law. The above report was generated using voice recognition software. It may contain grammatical, syntax o r spelling errors. Electronically signed by: Fabiano Sunshine M.D. 02/01/2022 8:02 PM
--- NOTE | 2022-02-01 21:42 | Surgery Consultation ---
Date of Consultation February 01, 2022 Assessment & Plan (1) Hiatal hernia: (2) Dysphagia: I discussed this case with the treating emergency room physician. It is entirely possible that the patient's large hiatal hernia is a contributing factor to the patient's inability to adequately swallow solid and liquid food, along with his weight loss. I also discussed with the with the treating emergency room physician that the patient has not had any upper endoscopy or swallow studies to further evaluate this problem. The studies will likely be required prior to any surgical intervention being entertained; but I did stress to the treating emergency room physician that this would be dependent on the operating surgeon. I discussed with my attending physician Dr. Boyd and he notes that due to the large size of the patient's hiatal hernia if surgical intervention is entertained this would likely need to be performed by a thoracic surgeon which we do not have available at this facility. At the present time the patient's abdominal exam is entirely benign. It is reasonable to have the patient admitted to our hospital for hydration measures as well as gastroenterology evaluation to discuss potential upper endoscopy and swallow study. Again, however I did reiterate to the treating emergency room carina morgan that due to the size of the hiatal hernia and large amount of stomach and the patient's chest this would likely need to be handled by a thoracic surgeon. The above plan and recommendations were discussed with the patient and his caregiver/girlfriend who was present at the bedside. I also discussed this with the hospitalist service. Supervising Physician Co-Signing Physician Notes Patient discussed with Sarath Richards, labs and imaging reviewed, agree with above. 76-year-old male with known large hiatal hernia now with intolerance to p.o. CT scan confirms a large hiatal hernia with the majority of stomach and the narrowing at the diaphragmatic hiatus. No evidence of volvulus. The patient will need further evaluation prior to surgical intervention. Would recommend swallow study and upper endoscopy. There is evidence of an acute gastric outlet obstruction he would need transfer to tertiary facility. After complete evaluation he will likely need evaluation by thoracic or foregut surgeon. History of Present Illness Reason for Consultation: Hiatal hernia History of Present Illness This is a 76-year-old male who presented to the emergency department secondary to inability to eat or drink. Patient notes that over the past year he has noted a decrease in his appetite. He further relates that over the past approximately 5 days he has been unable to swallow any solid food. He says that the food seems to get stuck before it enters his stomach and causes a great deal of pain. He then notes that he regurgitates the food almost immediately. He then noted that approximately for the past 2 days he has had the same issues with liquids. He does note over this time. He has lost approximately 10 pounds. He reports that he has had a colonoscopy in the past and to the best of his knowledge there is no significant pathology. With his current presentation he denies any hematemesis. He denies any bright red blood per rectum or melanotic stools. Is noteworthyto mention that the patient says that he did suffer a small heart attack approximately 2 years ago for which he has had stents placed. Since he has had his stents placed he has not had any substernal chest pain or dyspnea on exertion. In the emergency department patient labs and imaging which I independently reviewed. A CT scan of the abdomen and pelvis showed the patient had a large hiatal hernia. The proximal stomach was distended with an air-fluid level and a focal narrowing at the gastric body at the level of the diaphragmatic hiatus. Gastric wall thickening was noted and there is also some perigastric inflammatory stranding and trace free fluid. Was concerning for a nonspecific gastritis and possible gastric outlet obstruction. There is no evidence of small bowel obstruction. Labs include a CBC her white blood cell count, hemoglobin, hematocrit, and platelet count were all normal. Chemistry profile showed sodium, potassium, and creatinine were normal. There was a slight elevation of his BUN at 24. There is no significant elevation of his LFTs or lipase. Urinalysis was not indicative of infection. It is also noteworthy to mention that the patient did have a CT scan of his chest in December of this year. This study did demonstrate the patient had a large hiatal hernia that is redemonstrated on today's CAT scan. At the time of my interview he was resting comfortably in bed and he was in no distress. Allergies Allergy/AdvReac Type Severity Reaction Status Date / Time bacitracin Allergy Unknown unknown Verified 01/28/22 16:09 neomycin Allergy Unknown unknown Verified 01/28/22 16:09 polymyxin B Allergy Unknown unknown Verified 01/28/22 16:09 Home Medications Medication Instructions Recorded Confirmed Type aspirin 81 mg tablet,delayed 81 mg PO QAM 01/26/20 01/28/22 History release (Adult Low Dose Aspirin) lisinopril 5 mg tablet (Zestril) 5 mg PO QAM 90 days #90 tabs 02/24/21 01/28/22 Rx allopurinol 300 mg tablet 300 mg PO QAM 10/07/21 01/28/22 History atorvastatin 80 mg tablet 80 mg PO QPM #90 tabs 11/12/21 01/28/22 Rx sildenafil (pulm.hypertension) 20 100 mg PO ONCE PRN sexual activity 11/25/21 01/28/22 Rx mg tablet #30 tabs empagliflozin 5 mg-metformin ER 2 tab PO BID 12/31/21 01/28/22 History 1,000 mg tablet,extended release 24 hr finasteride 5 mg tablet 5 mg PO QPM 12/31/21 01/28/22 History levothyroxine 88 mcg tablet 88 mcg PO QAM 12/31/21 01/28/22 History (Levoxyl) metoprolol succinate 50 mg 50 mg PO QAM 12/31/21 01/28/22 History tablet,extended release 24 hr tamsulosin 0.4 mg capsule 0.4 mg PO QPM 12/31/21 01/28/22 History mirabegron 50 mg tablet,extended 50 mg PO QAM #14 tabs 01/19/22 01/28/22 Rx release 24 hr (Myrbetriq) tolterodine 4 mg capsule,extended 4 mg PO QPM #14 caps 01/19/22 01/28/22 Rx release 24 hr omeprazole 20 mg capsule,delayed 20 mg PO DAILY #30 caps 01/28/22 01/28/22 Rx release Patient History Medical History Adenomatous polyp of colon CAD (coronary artery disease) STEMI 12/2019 s/p FIGUEROA to 2nd diagonal Enlarged prostate without lower urinary tract symptoms (luts) Gout Hypercholesterolemia Hypertension Hypothyroidism Prediabetes PT DENIES HAVING DM ST elevation myocardial infarction (STEMI) 12/20/2019 - [facility] - cardiac cath - STENT PLACED - follows Dr. Krueger Surgical History History of colonoscopy History of heart artery stent 12/20/2019 - [facility] - post [place] - drug eluding - follows Dr. Krueger Hx of bilateral cataract extraction ~ 2021 [facility] Hx of cardiac catheterization 12/20/2019 - [facility] - post [place] - unsure location - follows Dr. Krueger Family History Mother Colorectal cancer Denies family history of Ovarian cancer Prostate cancer Myocardial infarction Breast cancer Social History Smoking Status: Never smoker Second Hand Exposure: No; Hx Alcohol Use: No Hx Substance Use: No Preferred Language: Romansh Communication Ability: Effective Director Oracle Database Required: No Beliefs That Will Affect Care: None marital status: / Current Living Situation: Alone current occupational status: retired current occupation: Retired Feels Safe at Home: Yes Childhood Exposure to Second-Hand Smoke: Yes Dental Care, Regularly: Yes Physical Activity Frequency: 3-4 Times per Week Seatbelt Use: always Sunscreen Use: Yes Assistive Devices: Glasses Review of Systems Constitutional: no fever and no chills Eyes: no eye pain Ear, Nose, Mouth, Throat: no ear pain Respiratory: no cough and no dyspnea Cardiovascular: no chest pain Gastrointestinal: as per Subjective / HPI, + nausea and + vomiting; no abdominal pain Genitourinary: no dysuria Musculoskeletal: no back pain Integumentary: no rash Neurologic: no localized weakness Physical Exam Constitutional: WD/WN, vitals as above Eyes: no conjunctival abnormality ENMT: Ears: no hearing impairment and no external ear abnormality Mouth: no oropharynx abnormality Neck: trachea midline Respiratory: normal respiratory effort; no respiratory distress and no labored breathing Cardiovascular: Rate/Rhythm: regular rate and regular rhythm Gastrointestinal (Abdomen): Abdomen is soft, nondistended, and nonrigid. There are no masses or organomegaly. There is no pain with palpation at the time of my exam. There is no rebound tenderness or guarding. Musculoskeletal: No calf tenderness Skin: no rashes Neurologic: moves all extremities Results & Data ([facility]) Vital Signs (Past 12 Hours) Vital Signs Temp Pulse Pulse Resp BP BP Pulse Ox 02/01/22 21:00 90 18 116/74 97 02/01/22 20:30 93 H 18 141/73 H 99 02/01/22 20:00 88 18 110/81 97 02/01/22 19:55 93 H 18 114/77 98 02/01/22 18:55 36.6 C 72 18 125/76 99 O2 Del Method 02/01/22 21:00 Room Air 02/01/22 20:30 Room Air 02/01/22 20:00 Room Air 02/01/22 19:55 Room Air 02/01/22 18:55 Room Air PG Care Time/CCT Total # of Minutes Spent Total Time Spent with Patient: Total time spent is greater than 50% in coordination of care (as documented) at patient's floor/unit and/or counseling patient: Coding Level of Care Code 16076 Inpt Consult Level 5 Diagnoses Hiatal hernia K44.9 Dysphagia R13.10
--- NOTE | 2022-02-01 21:47 | History & Physical Report ---
Date of Service February 01, 2022 Assessment & Plan (1) Gastric outlet obstruction: Plan: Gastric outlet obstruction/large hiatal hernia- Causing inability to swallow liquids or solids N.p.o. NSS + KCl 20 mEq at 80 mils per hour Zofran 4 mg IV every 6 hours as needed Protonix 40 mg IV twice daily Consult gastroenterology (2) Hiatal hernia: Plan: see above (3) Vomiting: (4) CAD (coronary artery disease): Plan: CAD/HTN/Stented coronary artery-- (5) Stented coronary artery: (6) Diabetes mellitus type II, controlled: Plan: Hold empagliflozin-metformin Placed on Accu-Cheks with NovoLog coverage per scale (7) Hypothyroidism: Plan: Hold levothyroxine until taking oral (8) Hypertension: (9) Hypercholesterolemia: (10) Gout: (11) Enlarged prostate without lower urinary tract symptoms (luts): History of Present Illness Chief Complaint: The patient presents emergency department with complaint of nausea, vomiting and upper abdominal discomfort, with inability for liquids and solids to pass as he swallowing. Primary Care Provider: Perla Travis MD The patient is an [age]-year-old male with past medical history including hiatal hernia, dysphagia, CAD, hemorrhoids, acute [place], stented coronary artery, diabetes mellitus type 2, urinary incontinence, erectile dysfunction, hypercholesterolemia, hypertension, gout, BPH with LUTS and hypothyroidism. He presents with worsening ability to swallow liquids and solids, and has had [place] sea and vomiting when attempting to take in liquids or solids. He reports a 30 pound weight loss since June Allergies Allergy/AdvReac Type Severity Reaction Status Date / Time bacitracin Allergy Unknown unknown Verified 02/01/22 22:33 neomycin Allergy Unknown unknown Verified 02/01/22 22:33 polymyxin B Allergy Unknown unknown Verified 02/01/22 22:33 Home Medications Medication Instructions Recorded Confirmed Type aspirin 81 mg tablet,delayed 81 mg PO QAM 01/26/20 02/01/22 History release (Adult Low Dose Aspirin) lisinopril 5 mg tablet (Zestril) 5 mg PO QAM 90 days #90 tabs 02/24/21 02/01/22 Rx allopurinol 300 mg tablet 300 mg PO QAM 10/07/21 02/01/22 History atorvastatin 80 mg tablet 80 mg PO QPM #90 tabs 11/12/21 02/01/22 Rx sildenafil (pulm.hypertension) 20 100 mg PO ONCE PRN sexual activity 11/25/21 02/01/22 Rx mg tablet #30 tabs empagliflozin 5 mg-metformin ER 2 tab PO BID 12/31/21 02/01/22 History 1,000 mg tablet,extended release 24 hr finasteride 5 mg tablet 5 mg PO QPM 12/31/21 02/01/22 History levothyroxine 88 mcg tablet 88 mcg PO QAM 12/31/21 02/01/22 History (Levoxyl) metoprolol succinate 50 mg 50 mg PO QAM 12/31/21 02/01/22 History tablet,extended release 24 hr tamsulosin 0.4 mg capsule 0.4 mg PO QPM 12/31/21 02/01/22 History mirabegron 50 mg tablet,extended 50 mg PO QAM #14 tabs 01/19/22 02/01/22 Rx release 24 hr (Myrbetriq) tolterodine 4 mg capsule,extended 4 mg PO QPM #14 caps 01/19/22 02/01/22 Rx release 24 hr omeprazole 20 mg capsule,delayed 20 mg PO DAILY #30 caps 01/28/22 02/01/22 Rx release Past Med/Surg History Medical History Adenomatous polyp of colon CAD (coronary artery disease) STEMI 12/2019 s/p FIGUEROA to 2nd diagonal Enlarged prostate without lower urinary tract symptoms (luts) Gout Hypercholesterolemia Hypertension Hypothyroidism Prediabetes PT DENIES HAVING DM ST elevation myocardial infarction (STEMI) 12/20/2019 - [facility] - cardiac cath - STENT PLACED - follows Dr. Krueger Surgical History History of colonoscopy History of heart artery stent 12/20/2019 - [facility] - post [place] - drug eluding - follows Dr. Krueger Hx of bilateral cataract extraction ~ 2021 [facility] Hx of cardiac catheterization 12/20/2019 - [facility] - post [place] - unsure location - follows Dr. Krueger Family History Mother Colorectal cancer Denies family history of Ovarian cancer Prostate cancer Myocardial infarction Breast cancer Social History Smoking Status: Former smoker Second Hand Exposure: No; Do You Dip or Chew Tobacco: No; Tobacco Cessation Education Requested by Patient: No Hx Alcohol Use: Yes Alcohol type: beer Hx Substance Use: No Preferred Language: Uzbek Communication Ability: Effective City Supervisor Required: No Beliefs That Will Affect Care: None marital status: / Current Living Situation: Alone current occupational status: retired current occupation: Retired Other Information That Helps Us Care for You: No Feels Safe at Home: Yes Safety Concerns: Feels Safe At This Time Childhood Exposure to Second-Hand Smoke: Yes Dental Care, Regularly: Yes Physical Activity Frequency: 3-4 Times per Week Seatbelt Use: always Sunscreen Use: Yes Assistive Devices: Glasses Review of Systems Review of Systems: The patient denies chest pain, palpitations, shortness of breath, dyspnea on exertion, cough, lower extremity swelling, sore throat, fevers, chills, sweats, diarrhea , constipation, pelvic pain, blood in urine or stool, dysuria, urinary frequency or urgency, lightheadedness, dizziness, headache, memory loss, loss of consciousness, rash, abnormal bruising or bleeding, imbalance, focal or generalized weakness, numbness or tingling in arms or legs, generalized arthralgias or myalgias, back or neck pain, or night sweats. The review of systems is otherwise negative other than for that already noted above, and at least 10 systems have been reviewed. Physical Exam Physical Exam: The patient is awake, alert and oriented 3, well developed and well nourished, normocephalic and atraumatic, lying in bed and in no acute distress. HEENT--PERRL, EOMI, mucous membranes and oropharynx dry. Neck--supple. No JVD. No bruits. Thyroid normal, trachea midline, no adenopathy. Heart--normal S1 and S2. No murmurs, rubs or gallops. Lungs--clear bilaterally, no respiratory distress, no accessory muscle use. Abdomen--normal bowel sounds and soft. Nontender. Nondistended, no hernias or masses, no organomegaly. Extremities--no cyanosis or clubbing. No edema. There are good distal pulses b/l. Dermatologic--normal skin turgor, normal color, no abnormal lymph nodes, no rash. Neurologic--cranial nerves II through XII grossly intact. Rheumatologic--normal range of motion. Psychiatric--normal affect. Results & Data Results & Data ([facility]) Vital Signs (Past 12 Hours) Vital Signs Temp Pulse Pulse Resp BP BP Pulse Ox 02/01/22 21:00 90 18 116/74 97 02/01/22 20:30 93 H 18 141/73 H 99 02/01/22 20:00 88 18 110/81 97 02/01/22 19:55 93 H 18 114/77 98 02/01/22 18:55 36.6 C 72 18 125/76 99 O2 Del Method 02/01/22 21:00 Room Air 02/01/22 20:30 Room Air 02/01/22 20:00 Room Air 02/01/22 19:55 Room Air 02/01/22 18:55 Room Air Laboratory Results Laboratory Results WBC 10.18 K/ul (4.8-10.8) 02/01/22 19:10 RBC 5.40 M/uL (4.63-6.08) 02/01/22 19:10 Hgb 17.5 g/dl (14.0-18.0) 02/01/22 19:10 Hct 50.8 % (40.1-51.0) 02/01/22 19:10 MCV 94.1 fL (80.0-100.0) 02/01/22 19:10 MCH 32.4 pg (25.0-34.0) 02/01/22 19:10 MCHC 34.4 g/dL (32.0-36.0) 02/01/22 19:10 RDW Std Deviation 51.5 fL (36.4-46.3) H 02/01/22 19:10 RDW Coeff of Mega 14.9 % (11.5-14.5) H 02/01/22 19:10 Plt Count 319 K/uL (130-400) 02/01/22 19:10 MPV 8.9 fL (9.4-12.4) L 02/01/22 19:10 Immature Gran % (Auto) 0.4 % 02/01/22 19:10 Neut % (Auto) 82.7 % 02/01/22 19:10 Lymph % (Auto) 10.9 % 02/01/22 19:10 Valley % (Auto) 5.6 % 02/01/22 19:10 Eos % (Auto) 0.0 % 02/01/22 19:10 Baso % (Auto) 0.4 % 02/01/22 19:10 Neut # (Auto) 8.42 K/uL (1.4-6.5) H 02/01/22 19:10 Lymph # (Auto) 1.11 K/uL (1.2-3.4) L 02/01/22 19:10 Valley # (Auto) 0.57 K/uL (0.24-0.82) 02/01/22 19:10 Eos # (Auto) 0.00 K/uL (0-0.50) 02/01/22 19:10 Baso # (Auto) 0.04 K/uL (0-0.2) 02/01/22 19:10 Immature Gran # (Auto) 0.04 K/uL (0.00-0.02) H 02/01/22 19:10 Sodium 141 mmol/L (136-145) 02/01/22 19:10 Potassium 4.3 mmol/L (3.5-5.1) 02/01/22 19:10 Chloride 100 mmol/L (98-107) 02/01/22 19:10 Carbon Dioxide 25 mmol/L (21-32) 02/01/22 19:10 Anion Gap 16 (3-11) H 02/01/22 19:10 BUN 24 mg/dl (6-23) H 02/01/22 19:10 Creatinine 1.05 mg/dl (0.6-1.4) 02/01/22 19:10 Est Cr Clr Drug Dosing 59.9 ml/min 02/01/22 19:10 Est GFR ( Amer) 79.5 ml/min 02/01/22 19:10 Est GFR (Non-Af Amer) 68.6 ml/min 02/01/22 19:10 BUN/Creatinine Ratio 22.9 (10-20) H 02/01/22 19:10 Glucose 138 mg/dl (70-99(Fasting)) H 02/01/22 19:10 POC Glucose 110 mg/dl (70-99) H 02/01/22 23:39 Calcium 10.2 mg/dl (8.5-10.1) H 02/01/22 19:10 Total Bilirubin 0.8 mg/dl (0.2-1.0) 02/01/22 19:10 AST 16 U/L (13-39) 02/01/22 19:10 ALT 14 U/L (7-52) 02/01/22 19:10 Alkaline Phosphatase 76 U/L (34-104) 02/01/22 19:10 Total Protein 7.5 gm/dl (6.0-8.3) 02/01/22 19:10 Albumin 4.4 gm/dl (3.4-5.0) 02/01/22 19:10 Globulin 3.1 gm/dl (2.5-4.0) 02/01/22 19:10 Albumin/Globulin Ratio 1.4 (0.9-2) 02/01/22 19:10 Urine Color Yellow 02/01/22 19:30 Urine Appearance Clear (Clear) 02/01/22 19:30 Urine pH 5.0 (4.5-7.5) 02/01/22 19:30 Ur Specific Hammett 1.033 (1.000-1.030) H 02/01/22 19:30 Urine Protein 2+ (Negative) H 02/01/22 19: Urine Glucose (UA) 3+ (Negative) H 02/01/22 19:30 Urine Ketones 3+ (Negative) H 02/01/22 19:30 Urine Blood 1+ (Negative) H 02/01/22 19:30 Urine Nitrite Negative (Negative) 02/01/22 19: Urine Bilirubin Negative (Negative) 02/01/22 19:30 Urine Urobilinogen Negative (Negative) 02/01/22 19:30 Ur Leukocyte Esterase Negative (Negative) 02/01/22 19:30 Urine WBC (Auto) 1-5 /hpf (0-5) 02/01/22 19:30 Urine RBC (Auto) 0-4 /hpf (0-4) 02/01/22 19:30 U Hyaline Cast (Auto) 1-5 /lpf (0-5) 02/01/22 19:30 U Epithel Cells (Auto) 5-10 /lpf (0-5) H 02/01/22 19:30 Urine Bacteria (Auto) Negative (Negative) 02/01/22 19:30 SARS-CoV-2, RNA, NAAT NEGATIVE (NEGATIVE) 02/01/22 21:55 Impressions Abdomen/Pelvis CT 02/01/22 19:[address] WITHOUT CONTRAST CT DOSE: 435.14 mGy.cm HISTORY: Acute upper abdominal pain with nausea and vomiting upper abd pain, vomiting TECHNIQUE: Multiaxial CT images of the abdomen and pelvis were performed without contrast. A dose lowering technique was utilized adhering to the principles of ALARA. COMPARISON STUDY: CTA chest 12/22/2021 FINDINGS: Cardiomegaly with coronary artery calcifications. Mild subsegmental bibasilar atelectasis with left hemidiaphragmatic elevation. No pneumatosis or pneumoperitoneum. The unenhanced spleen is unremarkable. Mild to moderate pancreatic atrophy. Unremarkable adrenal glands. Cholelithiasis without CT evidence of acute cholecystitis. No biliary ductal dilation. Mild hepatic steatosis. Mild nonspecific bilateral perinephric stranding. 4 mm nonobstructing calculus of the superior pole left kidney. No ureteral calculi or hydronephrosis. Prostamegaly. Urinary bladder wall thickening with partial distention. Atherosclerosis of the aorta without aneurysm. No lymphadenopathy. Large hiatal hernia. There is inflammatory stranding in the hernia sac with trace free fluid. There is wall thickening present within the gastric body with a focal area of narrowing on image 46.. There is distention with air-fluid level involving the superiormost aspect of the stomach. No bowel obstruction or bowel wall thickening. Colonic diverticulosis without acute diverticulitis. Mild fecal retention. Normal appendix. Unremarkable soft tissues. Degenerative changes of the spine, pelvis and hips. IMPRESSION: 1. Large hiatal hernia is redemonstrated. Air-fluid distended proximal stomach with focal narrowing of the gastric body at the diaphragmatic hiatus. Gastric wall thickening is noted along with perigastric inflammatory stranding and trace free fluid. Findings are compatible with a nonspecific gastritis with possible gastric obstruction at the site of narrowing. 2. No bowel obstruction or bowel wall thickening. 3. Nonobstructing left nephrolithiasis. 4. Cholelithiasis. 5. Prostamegaly. ACT 112: Negative or not required by law. The above report was generated using voice recognition software. It may contain grammatical, syntax or spelling errors. Electronically signed by: Fabiano Sunshine M.D. 02/01/2022 8:02 PM Code Status & VTE Plan Code Status Full code VTE Prophylaxis Plan VTE Prophylaxis will be ordered: Yes PG Care Time/CCT Total # of Minutes Spent Total Time Spent with Patient: Total time spent is greater than 50% in coordination of care (as documented) at patient's floor/unit and/or counseling patient: Coding Level of Care Code 91640 Initial Inpt Care Lvl 3 Diagnoses Gastric outlet obstruction K31.1 Hiatal hernia K44.9 Vomiting R11.10 CAD (coronary artery disease) I25.10 Stented coronary artery Z95.5 Diabetes mellitus type II, controlled E11.9 Diabetes mellitus rat exterminator insulin use: without rat exterminator use Diabetes mellitus complication status: without complication Hypothyroidism E03.9 Hypothyroidism type: unspecified Hypertension I10 Hypertension type: primary hypertension Hypercholesterolemia E78.00 Gout [id number] Gout site: foot Gout etiology: idiopathic Chronicity: chronic Laterality: unspecified laterality Presence of tophus: without tophus Enlarged prostate without lower urinary tract symptoms (luts) N40.0 (1) Diabetes mellitus type II, controlled Diabetes mellitus rat exterminator insulin use: without rat exterminator use Diabetes mellitus complication status: without complication Qualified Code(s): E11.9 - Type 2 diabetes mellitus without complications (2) Hypothyroidism Hypothyroidism type: unspecified Qualified Code(s): E03.9 - Hypothyroidism, unspecified (3) Hypertension Hypertension type: primary hypertension Qualified Code(s): I10 - Essential (primary) hypertension (4) Gout Gout site: foot Gout etiology: idiopathic Chronicity: chronic Laterality: unspecified laterality Presence of tophus: without tophus Qualified Code(s): [id number].0790 - Idiopathic chronic gout, unspecified ankle and foot, without tophus (tophi)
[2022-02-01] MEDS ORDERED: DEXTROSE 50% 50 ML SYRINGE IV PRN (23:22)
[2022-02-01] MEDS ORDERED: CARBOHYDRATES FOR HYPOGLYCEMIA PO PRN (23:22)
[2022-02-01] MEDS ORDERED: GLUCAGON FOR INJ 1 MG VIAL SQ PRN (23:22)
[2022-02-01] MEDS ORDERED: GLUCOSE 40% GEL 15 GM TUBE PO PRN (23:22)
[2022-02-01] MEDS ORDERED: GLUCOSE 10 TAB/TUBE PO PRN (23:22)
[2022-02-01] MEDS: NSS + 20MEQ KCL 20 MEQ/1,000 ML BAG IV SCH (23:22)
[2022-02-02] MEDS: INSULIN ASPART PER UNIT SC SCH ×4 (00:08→17:56)
[2022-02-02] MEDS ORDERED: HYDROmorphone INJ 0.5 MG/0.5 ML SYR IV STA (00:10)
[2022-02-02] MEDS: PANTOprazole 40 MG in SYRINGE 0 ML IV SCH ×3 (00:25→21:27)
[2022-02-02] MEDS: ONDANSETRON INJ 2 MG/ML 2 ML VIAL IV PRN ×2 (00:26→12:15)
[2022-02-02 07:31] LABS: Basophils # (auto) 0.04 K/uL (0-0.2); Basophils % (auto) 0.4 %; Hematocrit (blood only) 47.5 % (40.1-51.0); Hemoglobin 16.2 g/dl (14.0-18.0); Immature Granulocytes # (auto) 0.03 K/uL (0.00-0.02); Immature Granulocytes % (auto) 0.3 %; Lymphocytes # (auto) 0.81 K/uL (1.2-3.4); Lymphocytes % (auto) 7.5 %; Mean Corpuscular Hemoglobin 32.2 pg (25.0-34.0); Mean Corpuscular Hgb Conc 34.1 g/dL (32.0-36.0); Mean Corpuscular Volume 94.4 fL (80.0-100.0); Mean Platelet Volume 9.2 fL (9.4-12.4); Monocytes # (auto) 0.52 K/uL (0.24-0.82); Monocytes % (auto) 4.8 %; Neutrophils # (auto) 9.44 K/uL (1.4-6.5); Platelet Count 281 K/uL (130-400); RDW Coefficient of Variation 14.8 % (11.5-14.5); RDW Standard Deviation 51.3 fL (36.4-46.3); Red Blood Count 5.03 M/uL (4.63-6.08); White Blood Count 10.84 K/ul (4.8-10.8)
[2022-02-02 07:41] LABS: INR 1.1 (0.9-1.1); Partial Thromboplastin Ratio 0.9; Partial Thromboplastin Time 25.5 Seconds (21.0-31.0); Prothrombin Time 11.6 Seconds (9.0-12.0)
[2022-02-02] MEDS: NSS + 20MEQ KCL 20 MEQ/1,000 ML BAG IV SCH (07:48)
[2022-02-02 08:03] LABS: Albumin Globulin Ratio 1.4 (0.9-2); BUN Creatinine Ratio 29.4 (10-20); Bilirubin,Total 0.6 mg/dl (0.2-1.0); Calcium 9.1 mg/dl (8.5-10.1); Creatinine Clr Calc Pharmacy 73.9 ml/min; Est GFR (African American) 98.1 ml/min; Est GFR (Non-African American) 84.6 ml/min; Globulin 2.9 gm/dl (2.5-4.0); Magnesium 1.5 mg/dl (1.7-2.4); Potassium 4.3 mmol/L (3.5-5.1); Total Protein 6.9 gm/dl (6.0-8.3)
[2022-02-02 08:04] LABS: Estimated Average Glucose 146 mg/dl; Hemoglobin A1C 6.7 % (4.5-5.6)
--- NOTE | 2022-02-02 09:28 | Gastrointestinal Consultation ---
Date of Consultation February 02, 2022 Assessment & Plan (1) Gastric outlet obstruction: (2) Hiatal hernia: (3) Dysphagia: (4) Vomiting: Plan Discussed case with Dr. Cooper who advised on plan. - keep NPO at midnight tonight. - will plan to set patient up for EGD for tomorrow. - continue protonix 40mg bid - continue zofran 4mg IV q 6 hours as needed. Supervising Physician Co-Signing Physician Notes I personally evaluated the patient and agree with the findings as documented by Singh Rogers, KARTHIKEYAN Exam: Constitutional: WD/WN, vitals as above General: EOM intact bilaterally Neck: normal visual inspection Respiratory: normal respiratory effort, lungs clear to auscultation Cardiovascular: RRR, no murmur, no edema Gastrointestinal: abdomennormal to inspection, nondistended, soft, nontender, no hepatosplenomegaly Musculoskeletal: no cyanosis, head normal to inspection Skin: no rashes, warm and dry Neurologic: moves all extremities Psychiatric: A and O x3, euthymic affect History of Present Illness Reason for Consultation: gastric outlet obstruction Requesting Physician: Dr. Granado Attending Physician: Oscar Solis MD History of Present Illness Patient is a 76 year old male with past medical history including hiatal hernia, dysphagia, CAD, hemorrhoids, acute [place], stented coronary artery, diabetes mellitus type 2, urinary incontinence, erectile dysfunction, hypercholesterolemia, hypertension, gout, BPH, and hypothyroidism who was admitted with dehydration. He presented to the ED with worsening ability to swallow liquids and solids, nausea, vomiting when attempting to take in liquids or solids, and epigastric pain. He admits symptoms have been worsening over the past week. He rates pain as 4/10 and feels "like someone punched you". He reports a 30 lb weight loss since beginning of the year. During his evaluation he had a CT scan done 02/01/22 showing large hiatal hernia, air fluid distended proximal stomach with focal narrowing of gastric body at diaphragmatic hiatus. gastric wall thickening. question of nonspecific gastritis with possible gastric obstruction at narrowing. Surgery has seen the patient and he may require thoracic surgeon. They are recommending EGD and swallowing study. Never had an EGD. Last colonoscopy was 2013 with hyperplastic polyp and diverticulosis. rest of GI ros unremarkable unless noted above. Allergies Allergy/AdvReac Type Severity Reaction Status Date / Time bacitracin Allergy Unknown unknown Verified 02/01/22 22:33 neomycin Allergy Unknown unknown Verified 02/01/22 22:33 polymyxin B Allergy Unknown unknown Verified 02/01/22 22:33 Home Medications Medication Instructions Recorded Confirmed Type aspirin 81 mg tablet,delayed 81 mg PO QAM 01/26/20 02/01/22 History release (Adult Low Dose Aspirin) lisinopril 5 mg tablet (Zestril) 5 mg PO QAM 90 days #90 tabs 02/24/21 02/01/22 Rx allopurinol 300 mg tablet 300 mg PO QAM 10/07/21 02/01/22 History atorvastatin 80 mg tablet 80 mg PO QPM #90 tabs 11/12/21 02/01/22 Rx sildenafil (pulm.hypertension) 20 100 mg PO ONCE PRN sexual activity 11/25/21 02/01/22 Rx mg tablet #30 tabs empagliflozin 5 mg-metformin ER 2 tab PO BID 12/31/21 02/01/22 History 1,000 mg tablet,extended release 24 hr finasteride 5 mg tablet 5 mg PO QPM 12/31/21 02/01/22 History levothyroxine 88 mcg tablet 88 mcg PO QAM 12/31/21 02/01/22 History (Levoxyl) metoprolol succinate 50 mg 50 mg PO QAM 12/31/21 02/01/22 History tablet,extended release 24 hr tamsulosin 0.4 mg capsule 0.4 mg PO QPM 12/31/21 02/01/22 History mirabegron 50 mg tablet,extended 50 mg PO QAM #14 tabs 01/19/22 02/01/22 Rx release 24 hr (Myrbetriq) tolterodine 4 mg capsule,extended 4 mg PO QPM #14 caps 01/19/22 02/01/22 Rx release 24 hr omeprazole 20 mg capsule,delayed 20 mg PO DAILY #30 caps 01/28/22 02/01/22 Rx release Patient History Medical History Adenomatous polyp of colon CAD (coronary artery disease) STEMI 12/2019 s/p FIGUEROA to 2nd diagonal Enlarged prostate without lower urinary tract symptoms (luts) Gout Hypercholesterolemia Hypertension Hypothyroidism Prediabetes PT DENIES HAVING DM ST elevation myocardial infarction (STEMI) 12/20/2019 - [facility] - cardiac cath - STENT PLACED - follows Dr. Krueger Surgical History History of colonoscopy History of heart artery stent 12/20/2019 - [facility] - post [place] - drug eluding - follows Dr. Krueger Hx of bilateral cataract extraction ~ 2021 [facility] Hx of cardiac catheterization 12/20/2019 - [facility] - post [place] - unsure location - follows Dr. Krugeer Family History Mother Colorectal cancer Denies family history of Ovarian cancer Prostate cancer Myocardial infarction Breast cancer Social History Smoking Status: Former smoker Second Hand Exposure: No; Do You Dip or Chew Tobacco: No; Tobacco Cessation Education Requested by Patient: No Hx Alcohol Use: Yes Alcohol type: beer Hx Substance Use: No Preferred Language: Citizen Of [place] Communication Ability: Effective Group Reservations Coordinator Required: No Beliefs That Will Affect Care: None marital status: / Current Living Situation: Alone current occupational status: retired current occupation: Retired Other Information That Helps Us Care for You: No Feels Safe at Home: Yes Safety Concerns: Feels Safe At This Time Childhood Exposure to Second-Hand Smoke: Yes Dental Care, Regularly: Yes Physical Activity Frequency: 3-4 Times per Week Seatbelt Use: always Sunscreen Use: Yes Assistive Devices: None Review of Systems Review of Systems: All systems reviewed & are unremarkable except as noted in HPI & below Physical Exam Constitutional: WD/WN, vitals as above Respiratory: normal respiratory effort, lungs clear to auscultation Cardiovascular: RRR, no murmur, no edema Gastrointestinal (Abdomen): normal bowel sounds, soft, nontender, no hepatosplenomegaly Skin: no rashes, warm and dry Psychiatric: Orientation: alert and oriented x 3 Affect: euthymic affect Results & Data ([facility]) Vital Signs (Past 12 Hours) Vital Signs Temp Pulse Pulse Pulse Resp BP BP 02/02/22 08:00 02/02/22 07:55 36.6 C 81 16 128/77 02/01/22 23:18 02/01/22 23:18 02/01/22 23:18 36.6 C 102 H 18 133/91 02/01/22 22:50 100 H 18 139/85 02/01/22 21:49 94 H 15 134/88 Pulse Ox O2 Del Method 02/02/22 08:00 Room Air 02/02/22 07:55 94 Room Air 02/01/22 23:18 Room Air 02/01/22 23:18 Room Air 02/01/22 23:18 96 Room Air 02/01/22 22:50 96 Room Air 02/01/22 21:49 97 Room Air Diagnostic Findings ABDOMEN AND PELVIS CT WITHOUT CONTRAST CT DOSE: 435.14 mGy.cm HISTORY: Acute upper abdominal pain with nausea and vomiting upper abd pain, vomiting TECHNIQUE: Multiaxial CT images of the abdomen and pelvis were performed without contrast. A dose lowering technique was utilized adhering to the principles of ALARA. COMPARISON STUDY: CTA chest 12/22/2021 FINDINGS: Cardiomegaly with coronary artery calcifications. Mild subsegmental bibasilar atelectasis with left hemidiaphragmatic elevation. No pneumatosis or pneumoperitoneum. The unenhanced spleen is unremarkable. Mild to moderate pancreatic atrophy. Unremarkable adrenal glands. Cholelithiasis without CT evidence of acute cholecystitis. No biliary ductal dilation. Mild hepatic steatosis. Mild nonspecific bilateral perinephric stranding. 4 mm nonobstructing calculus of the superior pole left kidney. No ureteral calculi or hydronephrosis. Prostamegaly. Urinary bladder wall thickening with partial distention. Atherosclerosis of the aorta without aneurysm. No lymphadenopathy. Large hiatal hernia. There is inflammatory stranding in the hernia sac with trace free fluid. There is wall thickening present within the gastric body with a focal area of narrowing on image 46.. There is distention with air-fluid level involving the superiormost aspect of the stomach. No bowel obstruction or bowel wall thickening. Colonic diverticulosis without acute diverticulitis. Mild fecal retention. Normal appendix. Unremarkable soft tissues. Degenerative changes of the spine, pelvis and hips. IMPRESSION: 1. Large hiatal hernia is redemonstrated. Air-fluid distended proximal stomach with focal narrowing of the gastric body at the diaphragmatic hiatus. Gastric wall thickening is noted along with perigastric inflammatory stranding and trace free fluid. Findings are compatible with a nonspecific gastritis with possible gastric obstruction at the site of narrowing. 2. No bowel obstruction or bowel wall thickening. 3. Nonobstructing left nephrolithiasis. 4. Cholelithiasis. 5. Prostamegaly. ACT 112: Negative or not required by law. The above report was generated using voice recognition software. It may contain grammatical, syntax or spelling errors. Electronically signed by: Fabiano Sunshine M.D. 02/01/2022 8:02 PM PG Care Time/CCT Total # of Minutes Spent Total Time Spent with Patient: Total time spent is greater than 50% in coordination of care (as documented) at patient's floor/unit and/or counseling patient: Coding Level of Care Code 64193 Initial Inpt Care Lvl 3 Diagnoses Gastric outlet obstruction K31.1 Hiatal hernia K44.9 Dysphagia R13.10 Vomiting R11.10
--- NOTE | 2022-02-02 14:29 | Hospitalist Progress Note ---
Date of Service February 02, 2022 Assessment & Plan (1) Gastric outlet obstruction: Plan: Gastric outlet obstruction/large hiatal hernia- - Causing inability to swallow liquids or solids - Strict NPO - Zofran 4 mg IV every 6 hours as needed - Protonix 40 mg IV twice daily - Consult GS and GI - Change IVF from NSS w/ KCl to NSS at 80 ml/hr (2) Hiatal hernia: Plan: - Seen by GS, due to size of HH if surgical intervention is needed, he will need tertiary for thoracic or foregut surgeon - Needs full w/u for inability to swallow with EGD and swallow study prior to tx for surgical eval (3) Vomiting: Plan: - See above (4) CAD (coronary artery disease): Plan: CAD/HTN/Stented coronary artery-- - Stable, meds on hold d/t NPO status (5) Diabetes mellitus type II, controlled: Plan: Hold empagliflozin-metformin - Placed on Accu-Cheks q6 with NovoLog coverage per scale (6) Hypothyroidism: Plan: - Hold levothyroxine until taking oral (7) Enlarged prostate without lower urinary tract symptoms (luts): Plan: - On Finasteride and Tamsulosin, both on hold d/t NPO Plan Reviewed GI consult, for EGD tomorrow with Dr. Cooper. Will place BASIC COMBATANT SWIMMER consult for swallow study. Determine plan based on results of scheduled procedures. Plan d/w Dr. Solis, further orders as warranted. Admission and Anticipated Discharge Date Admission Date: February 01, 2022 Subjective Patient seen on rounds this morning. He is resting comfortably in room. Has no complaints at present. Just prior to my visit had a dark brown emesis. Currently is not nauseated or having chest/abd pain. Review of Systems Review of Systems: All systems reviewed and are unremarkable except as noted in HPI and below. Denies fever, chills, fatigue, headache, nasal congestion, sore throat, cough, chest pain, shortness of breath, palpitations, orthopnea, PND, abdominal pain, n/d, constipation, dysuria, hematuria, frequency, back pain, joint pain or swelling, easy bruising or bleeding, skin lesions or rashes. Physical Exam Physical Exam: GENERAL: 76 yo Well-developed, well-nourished WM. NAD. LUNGS: Clear to auscultation bilaterally. No W/R/R. CARDIOVASCULAR: Regular rate and rhythm. 2/6 SUMANTH noted. ABDOMEN: Soft, non-tender and non-distended. BS normoactive x 4 quad. EXTREMITIES: No edema. Non-tender. Peripheral pulses +2/4. NEUROLOGIC: A&O x3. PSYCHIATRIC: Cooperative. Appropriate mood and affect. SKIN: Warm, dry, intact. No rashes or lesions. Results & Data Results & Data ([facility]) Vital Signs (Past 12 Hours) Vital Signs Temp Pulse Resp BP Pulse Ox O2 Del Method 02/02/22 08:00 Room Air 02/02/22 07:55 36.6 C 81 16 128/77 94 Room Air Laboratory Results 02/02/22 06:28 02/02/22 06:28 PG Care Time/CCT Total # of Minutes Spent Total Time Spent with Patient: Total time spent is greater than 50% in coordination of care (as documented) at patient's floor/unit and/or counseling patient: Coding Level of Care Code 85125 Subseq Hosp Care Lvl 2 Diagnoses Gastric outlet obstruction K31.1 Hiatal hernia K44.9 Vomiting R11.10 CAD (coronary artery disease) I25.10 Diabetes mellitus type II, controlled E11.9 Diabetes mellitus javascript software engineer insulin use: without usp use Diabetes mellitus complication status: without complication Hypothyroidism E03.9 Hypothyroidism type: unspecified Enlarged prostate without lower urinary tract symptoms (luts) N40.0 (1) Diabetes mellitus type II, controlled Diabetes mellitus usp insulin use: without javascript software engineer use Diabetes mellitus complication status: without complication Qualified Code(s): E11.9 - Type 2 diabetes mellitus without complications (2) Hypothyroidism Hypothyroidism type: unspecified Qualified Code(s): E03.9 - Hypothyroidism, unspecified
[2022-02-02] MEDS: SODIUM CHLORIDE 0.9% 1000ML 1,000 ML IV SCH (14:39)
--- NOTE | 2022-02-02 15:49 | Surgery Progress Note ---
Date of Service February 02, 2022 Assessment & Plan (1) Hiatal hernia: Plan: 76-year-old male with large hiatal hernia and concern for gastric outlet obstruction. He is to undergo an EGD tomorrow. If there is any evidence of gastric outlet obstruction, volvulus, or Isrrael's ulcer, he will likely need transfer to a tertiary facility for definitive surgical management. I did discuss this with my colleagues and no one feels that this would be amenable to repair at our facility. Surgery will follow peripherally, call with questions or concerns. Admission and Anticipated Discharge Date Admission Date: February 01, 2022 Subjective 76-year-old male admitted due to failure to thrive and concern for large hiatal hernia that may be driving this. He was unaware that he had the hernia though it has been seen on prior imaging studies. He has been vomiting up what ever he eats or drinks. No prior abdominal surgery. He has not had an upper endoscopy in the past. Physical Exam Constitutional: WD/WN, vitals as above Gastrointestinal (Abdomen): normal bowel sounds, soft, nontender, no hepatosplenomegaly Results & Data ([facility]) Vital Signs (Past 12 Hours) Vital Signs Temp Pulse Resp BP Pulse Ox O2 Del Method 02/02/22 15:27 36.7 C 97 H 16 150/91 H 95 Room Air 02/02/22 08:00 Room Air 02/02/22 07:55 36.6 C 81 16 128/77 94 Room Air Diagnostic Findings I personally reviewed and interpreted the CT scan and agree with the assessment of a large hiatal hernia with narrowing through the diaphragmatic crura. This may represent gastric outlet obstruction. No evidence of volvulus or large ulceration on imaging. ABDOMEN AND PELVIS CT WITHOUT CONTRAST CT DOSE: 435.14 mGy.cm HISTORY: Acute upper abdominal pain with nausea and vomiting upper abd pain, vomiting TECHNIQUE: Multiaxial CT images of the abdomen and pelvis were performed without contrast. A dose lowering technique was utilized adhering to the principles of ALARA. COMPARISON STUDY: CTA chest 12/22/2021 FINDINGS: Cardiomegaly with coronary artery calcifications. Mild subsegmental bibasilar atelectasis with left hemidiaphragmatic elevation. No pneumatosis or pneumoperitoneum. The unenhanced spleen is unremarkable. Mild to moderate pancreatic atrophy. Unremarkable adrenal glands. Cholelithiasis without CT evidence of acute cholecystitis. No biliary ductal dilation. Mild hepatic steatosis. Mild nonspecific bilateral perinephric stranding. 4 mm nonobstructing calculus of the superior pole left kidney. No ureteral calculi or hydronephrosis. Prostamegaly. Urinary bladder wall thickening with partial distention. Atherosclerosis of the aorta without aneurysm. No lymphadenopathy. Large hiatal hernia. There is inflammatory stranding in the hernia sac with trace free fluid. There is wall thickening present within the gastric body with a focal area of narrowing on image 46.. There is distention with air-fluid level involving the superiormost aspect of the stomach. No bowel obstruction or bowel wall thickening. Colonic diverticulosis without acute diverticulitis. Mild fecal retention. Normal appendix. Unremarkable soft tissues. Degenerative changes of the spine, pelvis and hips. IMPRESSION: 1. Large hiatal hernia is redemonstrated. Air-fluid distended proximal stomach with focal narrowing of the gastric body at the diaphragmatic hiatus. Gastric wall thickening is noted along with perigastric inflammatory stranding and trace free fluid. Findings are compatible with a nonspecific gastritis with possible gastric obstruction at the site of narrowing. 2. No bowel obstruction or bowel wall thickening. 3. Nonobstructing left nephrolithiasis. 4. Cholelithiasis. 5. Prostamegaly. PG Care Time/CCT Total # of Minutes Spent Total Time Spent with Patient: Total time spent is greater than 50% in coordination of care (as documented) at patient's floor/unit and/or counseling patient: Coding Level of Care Code 57820 Inpt Consult Level 2 Diagnoses Hiatal hernia K44.9
[2022-02-03] MEDS: INSULIN ASPART PER UNIT SC SCH ×4 (00:44→17:38)
[2022-02-03] MEDS: SODIUM CHLORIDE 0.9% 1000ML 1,000 ML IV SCH ×2 (03:12→19:11)
[2022-02-03 07:17] LABS: Basophils # (auto) 0.05 K/uL (0-0.2); Basophils % (auto) 0.5 %; Eosinophils # (auto) 0.02 K/uL (0-0.50); Eosinophils % (auto) 0.2 %; Hematocrit (blood only) 47.6 % (40.1-51.0); Hemoglobin 16.3 g/dl (14.0-18.0); Immature Granulocytes # (auto) 0.04 K/uL (0.00-0.02); Immature Granulocytes % (auto) 0.4 %; Lymphocytes # (auto) 1.16 K/uL (1.2-3.4); Lymphocytes % (auto) 10.6 %; Mean Corpuscular Hemoglobin 32.3 pg (25.0-34.0); Mean Corpuscular Hgb Conc 34.2 g/dL (32.0-36.0); Mean Corpuscular Volume 94.4 fL (80.0-100.0); Mean Platelet Volume 9.5 fL (9.4-12.4); Monocytes % (auto) 8.3 %; Neutrophils # (auto) 8.73 K/uL (1.4-6.5); Platelet Count 285 K/uL (130-400); RDW Coefficient of Variation 14.6 % (11.5-14.5); RDW Standard Deviation 50.5 fL (36.4-46.3); Red Blood Count 5.04 M/uL (4.63-6.08)
[2022-02-03 07:37] LABS: INR 1.1 (0.9-1.1); Partial Thromboplastin Ratio 0.9; Partial Thromboplastin Time 25.8 Seconds (21.0-31.0); Prothrombin Time 11.4 Seconds (9.0-12.0)
[2022-02-03 07:48] LABS: Albumin Globulin Ratio 1.6 (0.9-2); Albumin Level 3.9 gm/dl (3.4-5.0); BUN Creatinine Ratio 31.6 (10-20); Bilirubin,Total 0.7 mg/dl (0.2-1.0); Creatinine Clr Calc Pharmacy 79.5 ml/min; Est GFR (African American) 101.1 ml/min; Est GFR (Non-African American) 87.2 ml/min; Globulin 2.4 gm/dl (2.5-4.0); Magnesium 1.5 mg/dl (1.7-2.4); Potassium 3.9 mmol/L (3.5-5.1); Total Protein 6.3 gm/dl (6.0-8.3)
--- NOTE | 2022-02-03 08:05 | Anesthesiology Consultation ---
Date of Service February 03, 2022 Assessment & Plan (1) Encounter for pre-operative examination: Chart Review Chart Review: carpentry professional initiated History Surgery Operation Date: 02/03/22 16:00 Proposed Procedures p Esophagogastroduodenoscopy Dr. Cooper - Aba Cooper MD Height/Weight Height: 5 ft 9 in Weight: 83.5 kg Allergies Allergy/AdvReac Type Severity Reaction Status Date / Time bacitracin Allergy Unknown unknown Verified 02/01/22 22:33 neomycin Allergy Unknown unknown Verified 02/01/22 22:33 polymyxin B Allergy Unknown unknown Verified 02/01/22 22:33 Medications Home Medications Medication Instructions Recorded Confirmed Last Taken aspirin 81 mg tablet,delayed 81 mg PO QAM 01/26/20 02/01/22 12/22/21 release (Adult Low Dose Aspirin) lisinopril 5 mg tablet (Zestril) 5 mg PO QAM 90 days #90 tabs 02/24/21 02/01/22 12/22/21 allopurinol 300 mg tablet 300 mg PO QAM 10/07/21 02/01/22 12/22/21 atorvastatin 80 mg tablet 80 mg PO QPM #90 tabs 11/12/21 02/01/22 12/21/21 sildenafil (pulm.hypertension) 20 100 mg PO ONCE PRN sexual activity 11/25/21 02/01/22 12/18/21 mg tablet #30 tabs empagliflozin 5 mg-metformin ER 2 tab PO BID 12/31/21 02/01/22 Unknown 1,000 mg tablet,extended release 24 hr finasteride 5 mg tablet 5 mg PO QPM 12/31/21 02/01/22 Unknown levothyroxine 88 mcg tablet 88 mcg PO QAM 12/31/21 02/01/22 Unknown (Levoxyl) tamsulosin 0.4 mg capsule 0.4 mg PO QPM 12/31/21 02/01/22 Unknown mirabegron 50 mg tablet,extended 50 mg PO QAM #14 tabs 01/19/22 02/01/22 Unknown release 24 hr (Myrbetriq) tolterodine 4 mg capsule,extended 4 mg PO QPM #14 caps 01/19/22 02/01/22 Unknown release 24 hr omeprazole 20 mg capsule,delayed 20 mg PO DAILY #30 caps 01/28/22 02/01/22 Unknown release metoprolol succinate 50 mg 50 mg PO QAM #90 tabs 02/02/22 Unknown tablet,extended release 24 hr Active Medications Generic Name Dose Route Start Last Admin Trade Name Freq PRN Reason Stop Dose Admin Pantoprazole Sodium 40 mg/ 10 mls @ 5 mls/min 02/01/22 23:22 02/02/22 21:27 Syringe IV 03/03/22 23:21 5 mls/min BID KIARRA Administration Sodium Chloride 1,000 mls @ 80 mls/hr 02/02/22 14:30 02/03/22 03:12 Nss 1000ml IV 03/04/22 14:29 80 mls/hr .[id number] KIARRA Administration Insulin Aspart 0 units 02/02/22 00:00 02/03/22 06:32 Insulin Aspart Per Unit SC 03/04/22 00:00 Not Given Q6 KIARRA Ondansetron HCl 4 mg 02/01/22 23:22 02/02/22 12:15 Ondansetron Inj 2 Mg/Ml 2 Ml Vial IV 03/03/22 23:21 4 mg Q6H PRN Administration Nausea NPO Date Last Intake of Fluids: 02/02/22 Time Last Intake of Fluids: 23:59 Date Last Intake of Solids: 02/02/22 Time Last Intake of Solids: 23:59 Past Medical History Medical History Adenomatous polyp of colon CAD (coronary artery disease) STEMI 12/2019 s/p FIGUEROA to 2nd diagonal Enlarged prostate without lower urinary tract symptoms (luts) Gout Hypercholesterolemia Hypertension Hypothyroidism Prediabetes PT DENIES HAVING DM ST elevation myocardial infarction (STEMI) 12/20/2019 - [facility] - cardiac cath - STENT PLACED - follows Dr. Krueger Past Family History Family History Mother Colorectal cancer Denies family history of Ovarian cancer Prostate cancer Myocardial infarction Breast cancer Past Surgical History Surgical History History of colonoscopy History of heart artery stent 12/20/2019 - [facility] - post [place] - drug eluding - follows Dr. Krueger Hx of bilateral cataract extraction ~ 2021 [facility] Hx of cardiac catheterization 12/20/2019 - [facility] - post [place] - unsure location - follows Dr. Krueger Social History Smoking Status: Former smoker tobacco type: cigarettes Do You Dip or Chew Tobacco: No Hx Alcohol Use: Yes Alcohol type: beer alcohol intake frequency: 0-2 drinks per day Hx Substance Use: No substance use type: does not use Physical Exam Vital Signs Last Vital Signs Temp 98.1 F 02/03/22 07:48 Pulse 90 02/03/22 07:48 Resp 16 02/03/22 07:48 BP 143/81 H 02/03/22 07:48 Pulse Ox 99 02/03/22 07:48 O2 Del Method 02/03/22 07:48 Testing Laboratory Results 02/03/22 06:17 02/03/22 06:17 PT 11.4 Seconds (9.0-12.0) 02/03/22 06:17 INR 1.1 (0.9-1.1) 02/03/22 06:17 APTT 25.8 Seconds (21.0-31.0) 02/03/22 06:17 Hemoglobin A1c 6.7 % (4.5-5.6) H 02/02/22 06:28 Urine Color Yellow 02/01/22 19:30 Urine Appearance Clear (Clear) 02/01/22 19:30 Urine pH 5.0 (4.5-7.5) 02/01/22 19:30 Ur Specific [place] 1.033 (1.000-1.030) H 02/01/22 19:30 Urine Protein 2+ (Negative) H 02/01/22 19:30 Urine Glucose (UA) 3+ (Negative) H 02/01/22 19:30 Urine Ketones 3+ (Negative) H 02/01/22 19:30 Urine Nitrite Negative (Negative) 02/01/22 19:30 Ur Leukocyte Esterase Negative (Negative) 02/01/22 19:30 Urine WBC (Auto) 1-5 /hpf (0-5) 02/01/22 19:30 Urine RBC (Auto) 0-4 /hpf (0-4) 02/01/22 19:30 U Hyaline Cast (Auto) 1-5 /lpf (0-5) 02/01/22 19:30 U Epithel Cells (Auto) 5-10 /lpf (0-5) H 02/01/22 19:30 Urine Bacteria (Auto) Negative (Negative) 02/01/22 19:30 02/03/22 02/03/22 05:55 00:10 POC Glucose 103 H 115 H Electrocardiogram Date: 12/22/21 Normal sinus rhythm, rate 73 bpm Low voltage QRS Borderline Criteria for Old Septal infarct Abnormal ECG When compared with ECG of 07-OCT-2021 02:21, Borderline Criteria for Septal infarct now present Confirmed by Jonatan Plaza ([id number]) on 12/23/2021 9:02:53 AM Chest X-Ray Date: 12/22/21 IMPRESSION: 1. No acute chest disease. 2. Large hiatal hernia. Echocardiogram Date: 12/21/19 Normal LV size and systolic function. EF 60-65%. Small area of hypokinesis involving the distal anterolateral and mid anteroseptal quiros. Mild concentric LVH. Sclerotic AV without significant stenosis. Normal estimate RVSP. No prior study available for comparison. Cardiac Catheterization Date: 12/20/19 Summary: 1. Acute 100% occlusion of medium caliber second diagonal 2. Mild non-culprit vessel coronary artery disease -20 to 30% proximal LAD 3. Normal intracardiac filling pressure 4. Successful PCI of second diagonal ostium with single drug-eluting stent (2.25 x 15 mm [place]).
[2022-02-03] MEDS: PANTOprazole 40 MG in SYRINGE 0 ML IV SCH ×2 (08:29→20:35)
[2022-02-03] MEDS: HYDROmorphone INJ 0.5 MG/0.5 ML SYR IV PRN ×2 (08:59→21:32)
--- NOTE | 2022-02-03 09:12 | History & Physical Bridge Note ---
Date of Service February 03, 2022 History & Physical Bridge Note I have examined the patient, reviewed the History & Physical and in the interval since the performance of the History & Physical I have noted the following changes of clinical significance: no changes noted. He is planned for EGD today. has been NPO. no issues with nausea or vomiting currently. still having some epigastric pain rated 5/10. feels like a "punch in the stomach". no bowel movements since admission. he denies sob or chest pain. exam: cardiac: regular rate, rhythm lungs: clear to auscultation. abdomen: soft, nontender, normal bowel sounds, nondistended.
[2022-02-03] MEDS: MAGNESIUM SULFATE / D5W 1 GM/100 ML BAG IV SCH ×2 (09:31→13:00)
[2022-02-03] MEDS ORDERED: MIDAZOLAM HCL 1 MG/ML 2ML VIAL ONE (10:31)
[2022-02-03] MEDS ORDERED: fentaNYL citrate 100 MCG/2 ML VIAL ONE (10:31)
[2022-02-03] MEDS ORDERED: SUCCINYLCHOLINE CHLORIDE 20 MG/ML 10 ML VIAL IV ONE (10:36)
[2022-02-03] MEDS ORDERED: PROPOFOL IV EMULSION 10 MG/ML 20 ML VIAL IV ONE (10:36)
[2022-02-03] MEDS ORDERED: LIDOCAINE 2% MPF LOCAL 5 ML VIAL INFIL ONE (10:36)
[2022-02-03] MEDS ORDERED: ONDANSETRON INJ 2 MG/ML 2 ML VIAL ONE (10:47)
[2022-02-03] MEDS ORDERED: ePHEDrine sulfate 50 MG/ML AMP IV PRN (10:59)
[2022-02-03] MEDS ORDERED: ONDANSETRON INJ 2 MG/ML 2 ML VIAL IV PRN (10:59)
[2022-02-03] MEDS ORDERED: ATROPINE SULFATE 0.1 MG/ML 10ML SYR IV PRN (10:59)
[2022-02-03] MEDS ORDERED: fentaNYL citrate 100 MCG/2 ML VIAL IV PRN (10:59)
--- NOTE | 2022-02-03 11:01 | Hospitalist Progress Note ---
Date of Service February 03, 2022 Assessment & Plan (1) Gastric outlet obstruction: Plan: Gastric outlet obstruction/large hiatal hernia- - Causing inability to swallow liquids or solids - Maintain NPO status - Zofran 4 mg IV every 6 hours as needed - Protonix 40 mg IV twice daily - Consulted GS and GI - Continue maintenance fluids for now - For EGD today with Dr. Cooper - For completeness of w/u will obtain barium swallow on 02/04 to assess esophageal motility - Added Dilaudid 0.25mg IV q6 prn abd pain (2) Hiatal hernia: Plan: - Seen by GS, due to size of HH if surgical intervention is needed, he will need tertiary for thoracic or foregut surgeon - Needs full w/u for inability to swallow with EGD and swallow study prior to tx for surgical eval (3) Vomiting: Plan: - See above (4) CAD (coronary artery disease): Plan: CAD/HTN/Stented coronary artery-- - Stable, meds on hold d/t NPO status (5) Diabetes mellitus type II, controlled: Plan: Hold empagliflozin-metformin - Placed on Accu-Cheks q6 with NovoLog coverage per scale (6) Hypothyroidism: Plan: - Hold levothyroxine until taking oral (7) Enlarged prostate without lower urinary tract symptoms (luts): Plan: - On Finasteride and Tamsulosin, both on hold d/t NPO Plan Will await results of EGD and has planned barium swallow study tomorrow with MARGIN CLERK. Disposition of patient will be determined following completion of work up to determine if transfer to tertiary center w/ thoracic or foregut surgeon who can repair his hiatal hernia is warranted. Plan d/w Dr. Solis, further orders as warranted. Admission and Anticipated Discharge Date Admission Date: February 01, 2022 Subjective Patient seen on daily rounds this morning. Resting comfortably in bed. Reported this AM by RN that pt was having abd pain. Previously when had abd pain responded well to Dilaudid. Is for EGD today. No n/v. Review of Systems Review of Systems: All systems reviewed and are unremarkable except as noted in HPI and below. Denies fever, chills, fatigue, headache, nasal congestion, sore throat, cough, chest pain, shortness of breath, palpitations, orthopnea, PND, n/v/d, constipation, dysuria, hematuria, frequency, back pain, joint pain or swelling, easy bruising or bleeding, skin lesions or rashes. Physical Exam Physical Exam: GENERAL: 76 yo Well-developed, well-nourished WM. NAD. LUNGS: Clear to auscultation bilaterally. No W/R/R. CARDIOVASCULAR: Regular rate and rhythm. 2/6 SUMANTH noted. ABDOMEN: Soft, non-tender and non-distended. BS normoactive x 4 quad. EXTREMITIES: No edema. Non-tender. Peripheral pulses +2/4. NEUROLOGIC: A&O x3. PSYCHIATRIC: Cooperative. Appropriate mood and affect. SKIN: Warm, dry, intact. No rashes or lesions. Results & Data Results & Data ([facility]) Vital Signs (Past 12 Hours) Vital Signs Temp Pulse Resp BP Pulse Ox O2 Del Method 02/03/22 10:47 36.7 C 96 H 20 129/82 96 Room Air 02/03/22 07:48 36.7 C 90 16 143/81 H 99 Room Air 02/03/22 00:12 36.6 C 94 H 16 127/72 95 Room Air Laboratory Results 02/03/22 06:17 02/03/22 06:17 PG Care Time/CCT Total # of Minutes Spent Total Time Spent with Patient: Total time spent is greater than 50% in coordination of care (as documented) at patient's floor/unit and/or counseling patient: Coding Level of Care Code 73100 Subseq Hosp Care Lvl 2 Diagnoses Gastric outlet obstruction K31.1 Hiatal hernia K44.9 Vomiting R11.10 CAD (coronary artery disease) I25.10 Diabetes mellitus type II, controlled E11.9 Diabetes mellitus meterman insulin use: without halfway use Diabetes mellitus complication status: without complication Hypothyroidism E03.9 Hypothyroidism type: unspecified Enlarged prostate without lower urinary tract symptoms (luts) N40.0 (1) Diabetes mellitus type II, controlled Diabetes mellitus halfway insulin use: without halfway use Diabetes mellitus complication status: without complication Qualified Code(s): E11.9 - Type 2 diabetes mellitus without complications (2) Hypothyroidism Hypothyroidism type: unspecified Qualified Code(s): E03.9 - Hypothyroidism, unspecified
--- NOTE | 2022-02-03 11:50 | Procedure Note ---
Procedure Note Date of Service February 03, 2022 Note GI procedure note/brief op note EGD findings: large hiatal hernia with fluid in the sac and stomach, suctioned out; unable to identify pylorus or advance past stomach due to significant looping with hiatal hernia. recs: --recommend transfer to tertiary care center for thoracic surgery evaluation and treatment of his large hiatal hernia with gastric outlet obstruction -- NPO for now Aba Cooper MD Gastroenterology Coding
--- NOTE | 2022-02-03 11:56 | GI REPORT ---
Patient Name: Govind Calzada Procedure Date: 02/03/2022 10:54 AM Date of : 1945 Admit Type: Inpatient Age: 76 Gender: Male Attending MD: Aba Cooper MD Procedure: Upper GI endoscopy Providers: Aba Cooper MD Referring MD: Oscar Solis Md Indications: Abnormal CT of the GI tract, Nausea with vomiting Medicines: Monitored Anesthesia Care Complications: No immediate complications. Estimated blood loss: None. Estimated Blood Loss: Estimated blood loss: none. Procedure: Pre-Anesthesia Assessment: - Prior Anticoagulants: The patient has taken no previous anticoagulant or antiplatelet agents. - ASA Grade Assessment: II - A patient with mild systemic disease. After obtaining informed consent, the endoscope was passed under direct vision. Throughout the procedure, the patient's blood pressure, pulse, and oxygen saturations were monitored continuously. The Endoscope was introduced through the mouth, with the intention of advancing to the duodenum. The scope was advanced to the antrum before the procedure was aborted. Medications were given. The upper GI endoscopy was accomplished without difficulty. The patient tolerated the procedure well. Findings: A large hiatal hernia was present. extensive fluid was present in the hernia sac and stomach, suctioned out. unable to advance past the stomach or identify the pylorus due to the hernia and looping. procedure aborted. LA Grade A (one or more mucosal breaks less than 5 mm, not extending between tops of 2 mucosal folds) esophagitis with no bleeding was found in the lower third of the esophagus. Impression: - Large hiatal hernia. - LA Grade A esophagitis. - No specimens collected. Recommendation: - [facility]. - NPO today. recommedn transfer to tertiary center for thoracic surgery evaluation and treatment of large hernia and gastric outlet obstruction. Aba Cooper MD 02/03/2022 11:56:20 AM This report has been signed electronically. Note Initiated On: 02/03/2022 10:54 AM Number of Addenda: 0 I attest to the content of the Intraoperative Record and orders documented therein, exceptions below {[id number]}
[2022-02-03] MEDS ORDERED: PHENYLEPHRINE HCL 10 MG/ML VIAL ONE (12:15)
--- NOTE | 2022-02-03 12:38 | Anesthesiology Progress Note ---
Date of Service February 03, 2022 Anesthesia Post Procedure Vital Signs Vital Signs: Temp Pulse Pulse Resp BP Pulse Ox O2 Del Method 02/03/22 12:25 85 17 124/74 92 Room Air 02/03/22 12:15 86 21 125/79 97 Oxymask 02/03/22 12:06 96.8 F L 97 H 13 128/78 95 Oxymask 02/03/22 10:47 98.1 F 96 H 20 129/82 96 Room Air 02/03/22 07:48 98.1 F 90 16 143/81 H 99 Room Air 02/02/22 21:25 Room Air 02/03/22 00:12 97.9 F 94 H 16 127/72 95 Room Air 02/02/22 15:27 98.1 F 97 H 16 150/91 H 95 Room Air O2 Flow Rate 02/03/22 12:25 02/03/22 12:15 9 02/03/22 12:06 9 02/03/22 10:47 02/03/22 07:48 02/02/22 21:25 02/03/22 00:12 02/02/22 15:27 Pain Intensity Abdomen: Pain Intensity: 8 Transfer of Care Handoff Completed per policy Notes Mental Status: alert / awake / arousable and participated in evaluation Patient Amnestic to Procedure: Yes Nausea / Vomiting: adequately controlled Pain: adequately controlled Airway Patency, RR, SpO2: stable & adequate BP & HR: stable & adequate Hydration State: stable & adequate Anesthetic Complications: no major complications apparent and Pt Satisfied with anesthetic care
--- NOTE | 2022-02-03 18:01 | Discharge Summary ---
Date of Service February 03, 2022 Admission HPI Per Admitting Provider The patient is an [age]-year-old male with past medical history including hiatal hernia, dysphagia, CAD, hemorrhoids, acute NV, stented coronary artery, diabetes mellitus type 2, urinary incontinence, erectile dysfunction, hypercholesterolemia, hypertension, gout, BPH with LUTS and hypothyroidism. He presents with worsening ability to swallow liquids and solids, and has had nausea and vomiting when attempting to take in liquids or solids. He reports a 30 pound weight loss since June Principal Diagnosis Gastric outlet obstruction due to large hiatal hernia Discharge Exam GENERAL: 76 yo Well-developed, well-nourished WM. NAD. LUNGS: Clear to auscultation bilaterally. No W/R/R. CARDIOVASCULAR: Regular rate and rhythm. 2/6 SUMANTH noted. ABDOMEN: Soft, non-tender and non-distended. BS normoactive x 4 quad. EXTREMITIES: No edema. Non-tender. Peripheral pulses +2/4. NEUROLOGIC: A&O x3. PSYCHIATRIC: Cooperative. Appropriate mood and affect. SKIN: Warm, dry, intact. No rashes or lesions. Discharge Data Allergies Allergy/AdvReac Type Severity Reaction Status Date / Time bacitracin Allergy Unknown unknown Verified 02/01/22 22:33 neomycin Allergy Unknown unknown Verified 02/01/22 22:33 polymyxin B Allergy Unknown unknown Verified 02/01/22 22:33 Consultations 02/01/22 21:16 ED Decision to Admit Stat 02/01/22 21:56 Consult Gastroenterology Routine 02/03/22 17:29 Burn CD for patient Stat Procedures Performed Operation Date: 02/03/22 11:30 Actual Procedures p Esophagogastroduodenoscopy - Aba Cooper MD Ordered Studies Abdomen/Pelvis CT 02/01/22 19:[address] WITHOUT CONTRAST CT DOSE: 435.14 mGy.cm HISTORY: Acute upper abdominal pain with nausea and vomiting upper abd pain, vomiting TECHNIQUE: Multiaxial CT images of the abdomen and pelvis were performed without contrast. A dose lowering technique was utilized adhering to the principles of ALARA. COMPARISON STUDY: CTA chest 12/22/2021 FINDINGS: Cardiomegaly with coronary artery calcifications. Mild subsegmental bibasilar atelectasis with left hemidiaphragmatic elevation. No pneumatosis or pneumoperitoneum. The unenhanced spleen is unremarkable. Mild to moderate pancreatic atrophy. Unremarkable adrenal glands. Cholelithiasis without CT evidence of acute cholecystitis. No biliary ductal dilation. Mild hepatic steatosis. Mild nonspecific bilateral perinephric stranding. 4 mm nonobstructing calculus of the superior pole left kidney. No ureteral calculi or hydronephrosis. Prostamegaly. Urinary bladder wall thickening with partial distention. Atherosc lerosis of the aorta without aneurysm. No lymphadenopathy. Large hiatal hernia. There is inflammatory stranding in the hernia sac with trace free fluid. There is wall thickening present within the gastric body with a focal area of narrowing on image 46.. There is distention with air-fluid level involving the superiormost aspect of the stomach. No bowel obstruction or bowel wall thickening. Colonic diverticulosis without acute diverticulitis. Mild fecal retention. Normal appendix. Unremarkable soft tissues. Degenerative changes of the spine, pelvis and hips. IMPRESSION: 1. Large hiatal hernia is redemonstrated. Air-fluid distended proximal stomach with focal narrowing of the gastric body at the diaphragmatic hiatus. Gastric wall thickening is noted along with perigastric inflammatory stranding and trace free fluid. Findings are compatible with a nonspecific gastritis with possible gastric obstruction at the site of narrowing. 2. No bowel obstruction or bowel wall thickening. 3. Nonobstructing left nephrolithiasis. 4. Cholelithiasis. 5. Prostamegaly. ACT 112: Negative or not required by law. The above report was generated using voice recognition software. It may contain grammatical, syntax or spelling errors. Electronically signed by: Fabiano Sunshine M.D. 02/01/2022 8:02 PM Hospital Course (1) Gastric outlet obstruction: Gastric outlet obstruction/large hiatal hernia- - Causing inability to swallow liquids or solids - Maintain NPO status - Zofran 4 mg IV every 6 hours as needed - Protonix 40 mg IV twice daily - Consulted GS and GI - Continue maintenance fluids for now NS at 80 ml/hr - For EGD today with Dr. Cooper--findings c/w gastric outlet obstruction due to large hiatal hernia - Added Dilaudid 0.25mg IV q6 prn abd pain - Dr. Cooper advised transfer to tertiary center for hernia repair, pt's preference is [facility] [place], discussed case with Dr. Fabiano Herrmann who accepted. (2) Hiatal hernia: - As above (3) Vomiting: - See above (4) CAD (coronary artery disease): CAD/HTN/Stented coronary artery-- - Stable, meds on hold d/t NPO status (5) Diabetes mellitus type II, controlled: Hold empagliflozin-metformin - Placed on Accu-Cheks q6 with NovoLog coverage per scale (6) Hypothyroidism: - Hold levothyroxine until taking oral (7) Enlarged prostate without lower urinary tract symptoms (luts): - On Finasteride and Tamsulosin, both on hold d/t NPO Plan Plan is to transfer patient to [facility] for surgical repair of his large hiatal hernia causing gastric outlet obstruction. Disc with images will be burned and sent with patient and chart will be copied and sent as well. Pt is medically and hemodynamically stable for ground BLS transport once bed assignment is received. Plan has been d/w Dr. Solis who has also seen and evaluated this patient and agrees with aforementioned. Total Time Total Time Spent Total Time Spent (In Minutes): >30 minutes Discharge Plan Discharge Items Patient Disposition: Transfer Acute Care Hospital Reason For Visit: DYSPHAGIA, NAUSEA AND VOMITING Discharge Diagnosis: Large hiatal hernia causing blockage Activity: Resume your previous activity Non-emergency contact: Primary Care Provider and Specialist Call non-emergency contact if: you have any medication questions Follow-up/Referrals: Perla Travis MD [Primary Care Provider] - Diet: Nothing by Mouth Addtl Attending Provider Instructions: You were hospitalized due to nausea and vomiting with difficulty swallowing solids and liquids. You underwent an EGD which found a very large hiatal hernia which is causing a blockage and not allowing food or liquids to get through which is why you are vomiting. Due to the size of the hernia, our surgeons at [facility] are recommending a higher level of care (tertiary care) in order for you to undergo surgical repair of the hernia. We have discussed the case with [facility] and you have been accepted by Dr. Fabiano Herrmann. Once a bed assignment is given, transportation will be arranged and you will be taken via ambulance service to [facility]. Pending Studies at Discharge: No Stand-Alone Forms: My [facility] Skilled Items Patient informed of condition?: Yes DNR: No Discharge Level of Care: Other Communicable Disease: No Discharge Prognosis: Stable Lines: Peripheral IV Urinary Catheter: No Medications and DC Order Prescriptions: Continued Myrbetriq 50 mg tablet extended release 24 hr 50 mg PO QAM Qty: 14 0RF tolterodine 4 mg capsule,extended release 24hr 4 mg PO QPM Qty: 14 0RF metoprolol succinate 50 mg tablet extended release 24 hr 50 mg PO QAM Qty: 90 3RF aspirin [Adult Low Dose Aspirin] 81 mg tablet,delayed release (DR/EC) 81 mg PO QAM omeprazole 20 mg capsule,delayed release(DR/EC) 20 mg PO DAILY Qty: 30 2RF lisinopril [Zestril] 5 mg tablet 5 mg PO QAM 90 Days Qty: 90 3RF atorvastatin 80 mg tablet 80 mg PO QPM Qty: 90 3RF sildenafil (pulm.hypertension) 20 mg tablet 100 mg PO ONCE PRN (Reason: sexual activity) Qty: 30 11RF Rx Instructions: Take approx 1 hour prior to activity. Avoid large or heavy meals for maximum effectiveness. allopurinol 300 mg tablet 300 mg PO QAM levothyroxine [Levoxyl] 88 mcg tablet 88 mcg PO QAM tamsulosin 0.4 mg capsule 0.4 mg PO QPM finasteride 5 mg tablet 5 mg PO QPM empagliflozin-metformin 5-1,000 mg tablet, IR - ER, biphasic 24hr 2 tab PO BID Discharge Orders: Discharge Order (Routine); Ordered 02/03/22 Ordered By: Frieda Tomas/Other Patient Handouts: Managing Type 2 Diabetes Admission Data Admit Date/Time: 02/01/22 21:46 Attending Provider: Oscar Solis Admit Provider: Brien Wagner Primary Care Provider: Perla Travis Other Providers: Brien Wagner ; Aba Cooper Other Interventions: Discharge Summary Assessment (RN) Last Done: 02/03/22 19:13 Supervising Physician Co-Signing Physician Notes I personally saw and examined the patient. I verified all schafer points and agree with Frieda Quesada PA-C with the following exceptions and/or additions: 76 year old male admission for dysphagia. Diagnosed with gastric outlet obstruction due to large hiatal hernia on EGD. Gastroenterology recommendation for transfer to [facility] for surgical repair and patient accepted at [place]. Patient with no nausea, vomiting, abdominal pain at time of discharge. Bruno ALVARADO. Coding Level of Care Code D/C DAY MANAGEMENT >30 MINS Diagnoses Gastric outlet obstruction K31.1 Hiatal hernia K44.9 Vomiting R11.10 CAD (coronary artery disease) I25.10 Diabetes mellitus type II, controlled E11.9 Diabetes mellitus complication status: without complication Diabetes mellitus taxonomist insulin use: without taxonomist use Hypothyroidism E03.9 Hypothyroidism type: unspecified Enlarged prostate without lower urinary tract symptoms (luts) N40.0
[2022-02-03] MEDS: ONDANSETRON INJ 2 MG/ML 2 ML VIAL IV PRN (21:32)
== END 2022-02-03 19:45 | disposition short-term general hospital (02) | DRG 392 ==
LOC: ED 18:43 → SUATTDRO 21:46 → 3E 21:46
DX: N40.0 Benign prostatic hyperplasia without lower urinary tract symptoms; K31.1 Adult hypertrophic pyloric stenosis; I25.2 Old myocardial infarction; E11.9 Type 2 diabetes mellitus without complications; E03.9 Hypothyroidism, unspecified; Z79.899 Other long term (current) drug therapy; R13.10 Dysphagia, unspecified; I25.10 Atherosclerotic heart disease of native coronary artery without angina pectoris; R63.4 Abnormal weight loss; Z95.818 Presence of other cardiac implants and grafts; Z79.82 Long term (current) use of aspirin; K44.0 Diaphragmatic hernia with obstruction, without gangrene; Z79.890 Hormone replacement therapy; Z88.1 Allergy status to other antibiotic agents; Z87.891 Personal history of nicotine dependence; I10 Essential (primary) hypertension